=== PATIENT | male | born 1970 | race Caucasian/White ===

== ENCOUNTER 2020-08-09 20:52 | Inpatient (IN) ==
[2020-08-09] MEDS ORDERED: LORazepam 2 MG/4 ML VIAL IV STA ×2 (21:28→23:37)
[2020-08-09 21:38] LABS: Basophils # (auto) 0.04 K/uL (0-0.2); Basophils % (auto) 0.3 %; Eosinophils # (auto) 0.01 K/uL (0-0.5); Eosinophils % (auto) 0.1 %; Hematocrit (blood only) 47.7 % (42-52); Hemoglobin 16.5 g/dL (14.0-18.0); Immature Granulocytes # (auto) 0.03 K/uL (0.00-0.02); Immature Granulocytes % (auto) 0.2 %; Lymphocytes # (auto) 1.74 K/uL (1.2-3.4); Lymphocytes % (auto) 13.2 %; Mean Corpuscular Hemoglobin 30.4 pg (25-34); Mean Corpuscular Hgb Conc 34.6 g/dL (32-36); Mean Platelet Volume 9.7 fL (7.4-10.4); Monocytes % (auto) 8.3 %; Neutrophils % (auto) 77.9 %; Platelet Count 255 K/uL (130-400); RDW Coefficient of Variation 13.1 % (11.5-14.5); Red Blood Count 5.42 M/uL (4.7-6.1); White Blood Count 13.22 K/uL (4.8-10.8)
[2020-08-09 22:16] LABS: Alanine Aminotransferase 55 U/L (12-78); Albumin Level 3.7 gm/dl (3.4-5.0); Aspartate Aminotransferase 31 U/L (15-37); BUN Creatinine Ratio 9.9 (10-20); Blood Urea Nitrogen 9 mg/dl (7-18); Calcium 8.6 mg/dl (8.5-10.1); Carbon Dioxide 23 mmol/L (21-32); Chloride 103 mmol/L (98-107); Creatinine Clr Calc Pharmacy 103.3 ml/min; Est GFR (African American) 110.7; Est GFR (Non-African American) 95.5; Glucose 133 mg/dl (70-99); Lipase 155 U/L (73-393); Sodium 138 mmol/L (136-145)
[2020-08-09] MEDS ORDERED: POTASSIUM CHLORIDE / WTR 10 MEQ/100 ML PLCT IV ONE (22:17)
[2020-08-09] MEDS ORDERED: POTASSIUM CHLORIDE CRTAB 20 MEQ TABCR PO STA (22:17)
[2020-08-09 22:18] LABS: D Dimer 250 ug/L FEU (0-500)
[2020-08-09 22:20] LABS: Albumin Globulin Ratio 0.9 (0.9-2); Alkaline Phosphatase 161 U/L (45-117); Bilirubin,Total 0.9 mg/dl (0.2-1); Total Protein 7.7 gm/dl (6.4-8.2); Troponin I < 0.015 ng/ml (0-0.045)
--- NOTE | 2020-08-09 22:21 | Emergency Department Note ---
Impression & Plan Left-sided chest pain, Tachycardia, Leukocytosis, Hypokalemia, Alcohol abuse, Discharge from urethra in male, Alcohol withdrawal ED Provider Note INFORMANT: Patient, ED PROVIDER(S): Santo Huntley MD CHIEF COMPLAINT: Left-sided chest pain PLAN: Disposition: Admitted Condition: Good Outpatient prescription management: none Referral: None MEDICAL DECISION MAKING: Patient presented because of left-sided chest pain but also noted significant issues with alcohol. He has had problems with trying to decrease or stop on his own. He has had issues with hallucinations in the past. He does not remember falling but did note a bruise to his left chest. He did have tenderness in the chest wall. He was tachycardic. ECG showed a sinus tachycardia without ischemia. Chest x-ray did not reveal any obvious significant findings. The patient had a mild leukocytosis on CBC. His alcohol level was elevated at 174. He was hypokalemic. This was repleted. Troponin LFTs and D-dimer were unremarkable. Given his tachycardia and chest pain a CT was performed to evaluate for any other possibilities. No obvious rib fracture, hemothorax, or pneumothorax seen. No PE. There was an abnormality in the right upper lobe which the patient states he has had before. He is not sure exactly what it is as he did not have a complete follow-up. Patient and did state that TB and cancer were ruled out. The patient was given IV Ativan. On reassessment he was still having persistent tachycardia and his blood pressure was elevated. I discussed possible treatment options outpatient versus inpatient. Given his history and his abnormal vital signs with his contributing that he usually will have withdrawal issues within 6 to 8 hours of his last drink we elected for inpatient evaluation and management. Consultation was made with the [facility] hospitalist service, Dr. Durga Mello. The patient was evaluated in the ER for further management. Incidentally the patient also was noting some urethral discharge and asked to be tested by a swab. This was performed and GC chlamydia testing is currently pending. A second dose of IV Ativan was also given. Triage Nursing notes reviewed and agree them. Additional history obtained from patient's Vital Signs: reviewed and remarkable for hypertension and tachycardia Differential diagnosis: Rib fracture, cardiac ischemia, aortic dissection, pulmonary embolism, pneumothorax, pneumonia, pericarditis, myocarditis, esophageal rupture, GERD, cholecystitis, pancreatitis, musculoskeletal,, STD, UTI, alcohol abuse, alcohol withdrawal as well as other pathologies. Diagnostics interpreted by me: ECG: Twelve-lead ECG reveals a sinus tachycardia at 108 bpm. Incomplete right bundle branch block. There is inferior Q waves present. Poor R wave progression anteriorly. No ST elevation. No PVCs or PACs. Normal QRS and axis. Cardiac Monitoring: Cardiac monitoring ordered by me: The patient was placed on continuous cardiac monitoring and observed. It revealed a normal sinus rhythm at 98 beats per minute without ectopy or evidence of dysrhythmia. Imaging studies: Chest x-ray. Findings: A chest x-ray was performed and revealed no pneumothorax, effusion, infiltrate, pulmonary edema, free air under the bi phragm, or wide mediastinum. Impression: No acute disease. CT PE study is negative for acute thromboembolic disease, pneumothorax, rib fracture. Abnormality noted in the right upper lobe. Unknown etiology. I refer you to the EMR for further details. HPI: The patient is a 49 year old male who presents to the Emergency Room with complaints of left-sided chest pain. This started today and is persisting. The left chest is tender to palpation. He does note a bruise in the left axilla. He is not sure if he fell as he notes drinking a significant on alcohol on a daily basis. The patient also notes the following associated symptoms, urethral discharge and wants tested for STD. The patient has taken no medication for relieving factors. Current pain is rated as 6/10. Patient states that he has had issues with withdrawal before. The patient notes he will typically have withdrawal symptoms within about 8 hours of stopping his last drink. The patient states his last drink was about 2 hours ago. Pt denies LOC, head trauma, headache, fevers, chills, diaphoresis, visual changes, neck pain, breathing difficulties, nausea, vomiting, abdominal pain, back pain, melena, hematochezia, urinary symptoms, numbness, weakness, lymphadenopathy, rash, or other complaints. ROS: See above HPI for pertinent positives & negatives. A total of 10 systems reviewed and were otherwise negative. PAST MEDICAL HISTORY:See Below , alcohol abuse PAST SURGICAL HISTORY:See Below, FAMILY HISTORY:See Below SOCIAL HISTORY:See Below, drinks daily. . HOME MEDICATIONS:See Below ALLERGIES:See Below VITALS:See Below PHYSICAL EXAMINATION: GENERAL: Awake, alert, well-appearing, in no distress HENT: Normocephalic, atraumatic. Oropharynx unremarkable. EYES: Normal conjunctiva. Sclera non-icteric. NECK: Inspection normal. Non-tender. Supple. No nuchal rigidity. FROM. No ma sses. RESPIRATORY: Clear to auscultation. No wheezes. No rales. Normal respiratory effort. CARDIAC: Tachycardic rate. Normal rhythm. No murmurs. No rubs. Extremities warm and well perfused. Pulses equal. No JVD. GI: Soft, non-distended. No tenderness to palpation. No rebound or guarding. No masses. : Normal male. No vesicles or ulcerations noted. No tenderness or swelling. MUSCULOSKELETAL: Atraumatic. Chest examination reveals no tenderness. The back is symmetrical on inspection without obvious abnormality. There is no CVA tenderness to palpation. No joint edema. LOWER EXTREMITIES: Calves are equal size bilaterally and non-tender. No edema. No discoloration. NEURO: Normal sensorium. No sensory or motor deficits noted. SKIN: No rash or jaundice noted. Santo Huntley MD Past Med/Surg History Social History Smoking Status: Current every day smoker Tobacco Type: Smokeless Tobacco (Dip or Chew) Feels Safe at Home: Yes Allergies Allergies Allergy/AdvReac Type Severity Reaction Status Date / Time No Known Allergies Allergy Verified 08/09/20 21:34 Home Meds Home Medications Medication Instructions Recorded Confirmed cholecalciferol (vitamin D3) 25 mcg PO DAILY 08/09/20 08/09/20 [Vitamin D3] gabapentin 800 mg PO TID 08/09/20 08/09/20 melatonin 15 mg PO HS 08/09/20 08/09/20 trazodone 150 mg PO HS 08/09/20 08/09/20 zinc sulfate 220 mg PO DAILY 08/09/20 08/09/20 Results & Data (ED) Vital Signs Vital Signs - 24 hr 08/09/20 20:54 08/09/20 21:18 08/09/20 21:30 Temperature 37.4 C Temperature Source Temporal Artery Scan Pulse Rate 120 H 114 H Pulse Rate [Apical] 126 H Pulse Rate from SpO2 Sensor 116 H Pulse Rhythm Regular Respiratory Rate 16 27 H Respiratory Effort / Characteristics Non-Labored Spontaneous Respiratory Depth Normal Blood Pressure 140/103 H 138/101 H Blood Pressure [Left Arm] 144/103 H Blood Pressure Mean 115 113 Blood Pressure Mean [Left Arm] 116 Blood Pressure Position [Left Arm] Pulse Oximetry 95 94 94 Oxygen Delivery Method Room Air Room Air Room Air Sepsis Recent Fever Within 48 Hours No Sepsis New/Unexplained Change in Mental Status No Sepsis Action Taken by Nursing No Action Required 08/09/20 22:00 08/09/20 22:30 08/09/20 23:00 Temperature Temperature Source Pulse Rate 110 H 111 H Pulse Rate [Apical] 101 H Pulse Rate from SpO2 Sensor 111 H 112 H Pulse Rhythm Respiratory Rate 16 Respiratory Effort / Characteristics Respiratory Depth Normal Blood Pressure 104/84 122/92 Blood Pressure [Left Arm] 146/88 H Blood Pressure Mean 90 102 Blood Pressure Mean [Left Arm] 107 Blood Pressure Position [Left Arm] Lying Pulse Oximetry 93 92 98 Oxygen Delivery Method Room Air Room Air Sepsis Recent Fever Within 48 Hours Sepsis New/Unexplained Change in Mental Status Sepsis Action Taken by Nursing Laboratory Data Result diagrams: 08/09/20 21:20 08/09/20 21:20 Lab Results 08/09/20 08/09/20 08/09/20 Range/Units 21:20 21:20 21:20 WBC 13.22 H (4.8-10.8) K/uL RBC 5.42 (4.7-6.1) M/uL Hgb 16.5 (14.0-18.0) g/dL Hct 47.7 (42-52) % MCV 88.0 (80-100) fL MCH 30.4 (25-34) pg MCHC 34.6 (32-36) g/dL RDW Std Deviation 42.0 (36.4-46.3) fL RDW Coeff of Lala 13.1 (11.5-14.5) % Plt Count 255 (130-400) K/uL MPV 9.7 (7.4-10.4) fL Immature Gran % (Auto) 0.2 % Neut % (Auto) 77.9 % Lymph % (Auto) 13.2 % Sanders % (Auto) 8.3 % Eos % (Auto) 0.1 % Baso % (Auto) 0.3 % Neut # (Auto) 10.30 H (1.4-6.5) K/uL Lymph # (Auto) 1.74 (1.2-3.4) K/uL Sanders # (Auto) 1.10 H (0.11-0.59) K/uL Eos # (Auto) 0.01 (0-0.5) K/uL Baso # (Auto) 0.04 (0-0.2) K/uL Immature Gran # (Auto) 0.03 H (0.00-0.02) K/uL D-Dimer 250 (0-500) ug/L FEU Sodium 138 (136-145) mmol/L Potassium 3.0 L (3.5-5.1) mmol/L Chloride 103 (98-107) mmol/L Carbon Dioxide 23 (21-32) mmol/L Anion Gap 13.0 H (3-11) BUN 9 (7-18) mg/dl Creatinine 0.94 (0.6-1.4) mg/dl Est Cr Clr Drug Dosing 103.3 ml/min Est GFR ( Amer) 110.7 Est GFR (Non-Af Amer) 95.5 BUN/Creatinine Ratio 9.9 L (10-20) Glucose 133 H (70-99) mg/dl Calcium 8.6 (8.5-10.1) mg/dl Total Bilirubin 0.9 (0.2-1) mg/dl AST 31 (15-37) U/L ALT 55 (12-78) U/L Alkaline Phosphatase 161 H (45-117) U/L Troponin I < 0.015 (0-0.045) ng/ml Total Protein 7.7 (6.4-8.2) gm/dl Albumin 3.7 (3.4-5.0) gm/dl Globulin 4.0 (2.5-4.0) gm/dl Albumin/Globulin Ratio 0.9 (0.9-2) Lipase 155 (73-393) U/L Ethyl Alcohol mg/dL (0-3) mg/dl 08/09/20 Range/Units 21:35 WBC (4.8-10.8) K/uL RBC (4.7-6.1) M/uL Hgb (14.0-18.0) g/dL Hct (42-52) % MCV (80-100) fL MCH (25-34) pg MCHC (32-36) g/dL RDW Std Deviation (36.4-46.3) fL RDW Coeff of Lala (11.5-14.5) % Plt Count (130-400) K/uL MPV (7.4-10.4) fL Immature Gran % (Auto) % Neut % (Auto) % Lymph % (Auto) % Sanders % (Auto) % Eos % (Auto) % Baso % (Auto) % Neut # (Auto) (1.4-6.5) K/uL Lymph # (Auto) (1.2-3.4) K/uL Sanders # (Auto) (0.11-0.59) K/uL Eos # (Auto) (0-0.5) K/uL Baso # (Auto) (0-0.2) K/uL Immature Gran # (Auto) (0.00-0.02) K/uL D-Dimer (0-500) ug/L FEU Sodium (136-145) mmol/L Potassium (3.5-5.1) mmol/L Chloride (98-107) mmol/L Carbon Dioxide (21-32) mmol/L Anion Gap (3-11) BUN (7-18) mg/dl Creatinine (0.6-1.4) mg/dl Est Cr Clr Drug Dosing ml/min Est GFR ( Amer) Est GFR (Non-Af Amer) BUN/Creatinine Ratio (10-20) Glucose (70-99) mg/dl Calcium (8.5-10.1) mg/dl Total Bilirubin (0.2-1) mg/dl AST (15-37) U/L ALT (12-78) U/L Alkaline Phosphatase (45-117) U/L Troponin I (0-0.045) ng/ml Total Protein (6.4-8.2) gm/dl Albumin (3.4-5.0) gm/dl Globulin (2.5-4.0) gm/dl Albumin/Globulin Ratio (0.9-2) Lipase (73-393) U/L Ethyl Alcohol mg/dL 174.4 H (0-3) mg/dl Administered Medications Discontinued Medications Lorazepam (Ativan) 2 mg in 4 mls @ 4 mls/min IV NOW STA Stop: 08/09/20 21:29 Last Admin: 08/09/20 21:34 Dose: 4 mls/min Documented by: [id number] Potassium Chloride (K Colt / Wtr) 10 meq in 100 mls @ 100 mls/hr IV ONE ONE Stop: 08/09/20 23:16 Last Infusion: 08/10/20 00:07 Dose: 0 mls/hr Documented by: [id number] Admin: 08/09/20 22:25 Dose: 100 mls/hr Documented by: [id number] Lorazepam (Ativan) 2 mg in 4 mls @ 4 mls/min IV NOW STA Stop: 08/09/20 23:38 Last Admin: 08/10/20 00:07 Dose: 4 mls/min Documented by: [id number] Ioversol (Optiray 320 125ml) 115 ml IV ONCE ONE Stop: 08/09/20 22:51 Last Admin: 08/09/20 22:50 Dose: 115 ml Documented by: [id number] Potassium Chloride (Potassium Chloride Crtab 20 Meq Tabcr) 20 meq PO NOW STA Stop: 08/09/20 22:18 Last Admin: 08/09/20 22:25 Dose: 20 meq Documented by: [id number] Discharge Plan Visit Data Chief Complaint: Chest Pain Stated Complaint: CHEST PAIN ED Provider: Santo Huntley Discharge Problem: Left-sided chest pain, Tachycardia, Leukocytosis, Hypokalemia, Alcohol abuse, Discharge from urethra in male, Alcohol withdrawal Forms Stand Alone Forms: My [facility] Prescriptions Prescriptions: No Action trazodone 50 mg Tablet 150 mg PO HS RF: 0 gabapentin 800 mg Tablet 800 mg PO TID RF: 0 cholecalciferol (vitamin D3) [Vitamin D3] 25 mcg (1,000 unit) Capsule 25 mcg PO DAILY RF: 0 zinc sulfate 220 (50) mg Capsule 220 mg PO DAILY RF: 0 melatonin 5 mg Tablet 15 mg PO HS RF: 0
[2020-08-09] MEDS ORDERED: OPTIRAY 320 125ml IV ONE (22:50)
--- NOTE | 2020-08-10 01:32 | History & Physical Report ---
Date of Service August 10, 2020 Assessment & Plan (1) Alcohol withdrawal: Mr. Pardo is a 49 yo M with a PMHx of alcohol use disorder and bipolar disorder who was admitted for alcohol withdrawal management and rehabilitation placement. - Etoh level 174 on admission - placed on AWSS protocol with oral Ativan (1 IV dose on board in the event of agitation) - patient is on gabapentin 800 TID at home (allegedly for bipolar disorder?)- increased to 800mg QID during admission given his history of withdrawal seizures - agreeable to inpatient Etoh rehab upon discharge - high dose folate, thiamine and daily MV ordered - will check folate and B12 levels in am - maintenance IVF with LR at 115mls/hr - zofran prn for nausea (2) Bipolar disorder: - description of manic episodes suggests type I - patient is not currently on a mood stabilizer - no apparent delusions or hallucinations on exam - psychiatry consult placed on admission for assistance with medication management in the setting of Etoh withdrawal (3) Tachycardia: - Chest CTA on admission showing no acute PE - likely secondary to Etoh withdrawal > sepsis (elevated WBC count, tachycardia) - withdrawal management as above (4) Leukocytosis: - WBC elevated to 13 - UA ordered. CXR and Chest CTA without evidence of consolidation concerning for PNA. GC/Chlamydia testing pending. - repeat CBC in am (5) Hypokalemia: - level 3.0 on admission - 30meQ replacement given in ED - LR at 11mls/hr as above - Mag level ordered - repeat BMP in am (6) Discharge from urethra in male: - gonorrhea and chlamydia testing ordered in ED - HIV testing added on admission - consider empiric antibiotics vs. awaiting GC/Ch results (7) Epigastric pain: - present on exam - suspect GERD/PUD - regular, heavy Etoh consumption is risk factor for the above - will start patient on protonix 20mg daily (8) Pulmonary nodule: - nodular opacity noted in Right upper lung field on chest CTA (STATrad); await official read - per patient - this is a known nodule, discovered ~ 2 years ago. 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 tele Diet: Regular Dvt ppx: Lovenox Code: Full, I discussed with patient History of Present Illness Primary Care Provider: NO PCP Mr. Pardo is a 49 yo gentleman with a PMHx of alcohol use disorder and bipolar disorder. He presents today for management of alcohol withdrawal symptoms. He has a history of many previous withdrawal episodes - several of which were associated with seizures. He says he typically drinks ~10 shots of hard liquor daily - no beer or wine. 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 He has been to inpatient rehab for alcoholism several times in the past - most recently in June 2020 at [facility] in [place], [place]. He did not have a good experience there. He describes significant overlap between his drinking problems and his mental health condition - he says that when he completed his treatment at [facility], he was discharged to a homeless fpc in the [place] area, rather than back at home with his . Apparently he was sleeping on the streets for several days and his was able to track him down. It is unclear why he was discharged to a homeless fpc rather than to home - but Mr. Pardo admits that his bipolar was "in effect" at the time. His was present in the room during the exam - she supplied most of the history. She characterizes this occurrence (being homeless in the [place] for several days) as a "fugue," or "dissociative episode" whereas Mr. Pardo describes it as "donavon." He does work with a psychiatric who is based out of the [place] area. This provider is apparently still caring for him remotely via telehealth. When asked what he takes for his bipolar disorder, Mr. Pardo replied, "Gabapentin." He did say that his psychiatrist wanted to start him on Latuda - but he has not actually started this medication yet due to affordability issues. They are working to find a cheaper alternative. Mr. Pardo was apparently seen in the [facility] ED on 07/06/20 - this visit seemingly took place immediately after his located him on the streets of [place]. Apparently Mrs. Pardo become quite irate - she was frustrated with the fact that physicians were allowing Mr. Pardo to make his own medical decisions (she felt as though he was mentally incompetent). [facility] social work, crisis work, and the police were involved with his ED visit - ultimately Mr. Pardo refused further care and drove home to [place] with his . Of note, he mentioned concern of penile discharge and dysuria. After his left - he said there were concerns "from both ends," about "relationship lies." He requested STD testing. He is motivated to quit drinking and is agreeable to inpatient rehab placement following this hospitalization. He would prefer not to go back to [facility] in [place]. On arrival to the ED, he was afebrile, tachycardic to 101, BP 146/88, RR 16, 98 on room air. His WBC was mildly elevated to 12. Hgb normal, MCV 88. D-dimer not elevated. K low at 3.0; electrolytes otherwise stable. Creatinine normal. AST and ALT normal. Alk phos elevated to 161. Trop < 0.015. Lipase not elevated. Eoth 174. Gonorrhea and chylamdia pending. CXR showing no acute process. Chest CTA showing no evidence of acute PE; RUL nodular opacity. Patient was given 2mg of IV Ativan x 2. His potassium was replaced with 20meq oral Kcl and 10meq IV. Allergies Allergy/AdvReac Type Severity Reaction Status Date / Time No Known Allergies Allergy Verified 08/09/20 21:34 Home Medications Medication Instructions Recorded Confirmed Type cholecalciferol (vitamin D3) 25 mcg PO DAILY 08/09/20 08/09/20 History [Vitamin D3] gabapentin 800 mg PO TID 08/09/20 08/09/20 History melatonin 15 mg PO HS 08/09/20 08/09/20 History trazodone 150 mg PO HS 08/09/20 08/09/20 History zinc sulfate 220 mg PO DAILY 08/09/20 08/09/20 History Past Med/Surg History Social History Smoking Status: Never smoker Tobacco Type: Smokeless Tobacco (Dip or Chew) Do You Dip or Chew Tobacco: Yes (1 can/day); Hx Alcohol Use: Yes Alcohol type: hard liquor Preferred Language: Uzbek Communication Ability: Effective 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 marital status: Current Living Situation: Spouse Feels Safe at Home: Yes Assistive Devices: Glasses Review of Systems Gastrointestinal: + abdominal pain Genitourinary: + dysuria and + penile discharge Physical Exam Constitutional: WD/WN, vitals as above cooperative; no acute distress Eyes: + anicteric sclerae ENMT: external ear and nose normal, oropharynx normal Neck: normal visual inspection and trachea midline Respiratory: normal respiratory effort, lungs clear to auscultation Auscultation: + wheezes (on expiration ); no crackles and no rales Cardiovascular: Rate/Rhythm: regular rhythm and + tachycardic Heart Sounds: normal S1 and normal S2 Extremities: no pedal edema Gastrointestinal (Abdomen): Inspection/Auscultation: abdomen normal to inspection and normal bowel sounds Percussion/Palpation: + abdomen tender (epigastric area) and abdomen soft; no guarding, abdomen not rigid and no hepatosplenomegaly Skin: no rashes, warm and dry Neurologic: moves all extremities Psychiatric: A+Ox3, euthymic affect Results & Data Results & Data ([facility]) Vital Signs (Past 12 Hours) Vital Signs Temp Pulse Pulse Resp BP BP Pulse Ox 08/10/20 01:00 101 H 16 160/104 H 96 08/09/20 23:00 101 H 16 146/88 H 98 08/09/20 22:30 111 H 122/92 92 08/09/20 22:00 110 H 104/84 93 08/09/20 21:30 114 H 138/101 H 94 08/09/20 21:18 126 H 27 H 144/103 H 94 08/09/20 20:54 37.4 C 120 H 16 140/103 H 95 Supervising Physician Co-Signing Physician Notes Attending addendum: I have physically seen this patient, have supervised the medical residents activities, and agree with the H&P unless as otherwise noted. Assessment and Plan: Alcohol withdrawal- Place on AWSS protocol. Already on gabapentin 800 mg 3 times daily, and will increase to 4 times daily. Folate 1 mg p.o. daily Thiamine 1 mg p.o. daily Nephrocaps 1 p.o. daily NSS + KCl 20 mEq 150 mils per hour Zofran 4 mg IV every 6 hours as needed Famotidine 20 mg IV every 12 hours Bipolar disorder/self-described manic episodes- Consult psychiatry Remaining orders and notations as noted Resident Activity Tracking Resident Involvement: Resident Care Provided Care Provided: Adult Hospital Medicine
[2020-08-10] MEDS ORDERED: ONDANSETRON INJ 2 MG/ML 2 ML VIAL IV PRN (04:09)
[2020-08-10] MEDS ORDERED: LORazepam 1 MG/2 ML VIAL IV PRN (04:09)
[2020-08-10] MEDS ORDERED: POLYETHYLENE (MIRALAX) 17 GM PACK PO PRN (04:09)
[2020-08-10] MEDS: LACTATED RINGER'S 1,000 ML IV SCH ×3 (05:09→21:03)
[2020-08-10 06:18] LABS: Appearance Urine Clear (Clear); Bacteria Urine Automated Negative (Negative); Bilirubin Urine Negative (Negative); Blood Urine Trace (Negative); Cast Urine Automated 0 /lpf (0-5); Color Urine Yellow; Glucose Urine UA Negative (Negative); Ketones Urine 1+ (Negative); Leukocyte Esterase Urine Negative (Negative); Nitrite Urine Negative (Negative); Protein Urine Negative (Negative); RBC Urine Automated 0-4 /hpf (0-4); Specific Gravity Urine > 1.045 (1.000-1.030); Urobilinogen Urine Negative (Negative); pH Urine 6.5 (4.5-7.5)
[2020-08-10 07:36] LABS: Basophils # (auto) 0.04 K/uL (0-0.2); Basophils % (auto) 0.5 %; Eosinophils # (auto) 0.09 K/uL (0-0.5); Eosinophils % (auto) 1.1 %; Hematocrit (blood only) 42.2 % (42-52); Hemoglobin 14.3 g/dL (14.0-18.0); Immature Granulocytes # (auto) 0.01 K/uL (0.00-0.02); Immature Granulocytes % (auto) 0.1 %; Lymphocytes # (auto) 2.09 K/uL (1.2-3.4); Lymphocytes % (auto) 25.6 %; Mean Corpuscular Hgb Conc 33.9 g/dL (32-36); Mean Corpuscular Volume 88.7 fL (80-100); Mean Platelet Volume 9.6 fL (7.4-10.4); Monocytes # (auto) 0.85 K/uL (0.11-0.59); Monocytes % (auto) 10.4 %; Neutrophils # (auto) 5.07 K/uL (1.4-6.5); Neutrophils % (auto) 62.3 %; Platelet Count 207 K/uL (130-400); RDW Coefficient of Variation 13.4 % (11.5-14.5); RDW Standard Deviation 43.2 fL (36.4-46.3); Red Blood Count 4.76 M/uL (4.7-6.1); White Blood Count 8.15 K/uL (4.8-10.8)
--- NOTE | 2020-08-10 07:50 | XRay Report ---
XR chest 1V portable HISTORY: Atypical Chest Pain COMPARISON: None. FINDINGS: No pleural effusions. No pneumothorax. The heart is normal in size. Small linear density le ft midlung zone favor scarring or atelectasis. Small tubular densities within the right upper lobe fa vor opacified bronchi. IMPRESSION: Small tubular density within the right upper lobe favor opacified bronchi. This is better appreciated on the same day chest CTA. ACT 112: Negative or not required by law. Electronically signed by: Hany Holm M.D. 08/10/2020 7:49 AM
[2020-08-10 08:26] LABS: BUN Creatinine Ratio 10.5 (10-20); Calcium 8.6 mg/dl (8.5-10.1); Creatinine Clr Calc Pharmacy 112.1 ml/min; Est GFR (African American) 118.8; Est GFR (Non-African American) 102.5; Potassium 3.6 mmol/L (3.5-5.1)
[2020-08-10] MEDS: GABAPENTIN 800 MG TAB PO SCH ×4 (08:28→21:05)
[2020-08-10] MEDS: PANTOprazole 40 MG TAB PO SCH (08:28)
[2020-08-10] MEDS: ENOXAPARIN INJ 40 MG/0.4 ML SYR SQ SCH (08:28)
[2020-08-10] MEDS: MULTIVITAMIN TAB PO SCH (08:28)
[2020-08-10] MEDS: FOLIC ACID 1 MG TAB PO SCH (08:29)
[2020-08-10] MEDS: THIAMINE HCL 100 MG TAB PO SCH (08:29)
[2020-08-10] MEDS: LORazepam 1 MG TAB PO PRN ×3 (08:32→21:14)
--- NOTE | 2020-08-10 08:44 | CT Scan Report ---
CT ANGIOGRAPHY OF THE CHEST, PULMONARY EMBOLUS PROTOCOL CLINICAL HISTORY: PE, left chest pain COMPARISON STUDY: Chest radiograph performed earlier today. TECHNIQUE: Following IV administration of 115 mL of Optiray-320, helical axial images of the chest we re obtained utilizing the pulmonary embolus protocol. Maximal intensity projections and sagittal and coronal reformats were viewed on an independent 3D workstation. IV contrast was administered withou t complication. Automated exposure control was utilized for the study. A dose lowering technique wa s utilized adhering to the principles of ALARA. CT DOSE: 611.58 mGy.cm FINDINGS: No pulmonary emboli are identified. The size of the heart is normal. There is no thoracic aortic dissection. No pericardial effusion. No pneumothorax or pleural effusion is noted. There is no consolidation to suggest pneumonia. There is no thoracic lymphadenopathy. Note is made of a hypodens e tubular density within the right upper lobe that measures 1.9 cm. There is associated bronchiectasi s within the right upper lobe and relative lucency within the right upper lobe. The thorax is unremar kable. Upper abdomen is unremarkable. IMPRESSION: 1. No pulmonary emboli identified. 2. No acute process within the chest. 3. 1.9 cm tubular hypodensity within the right upper lobe with associated bronchiectasis and relative lucency/emphysematous change. 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 Other etiologies such as allergic bronch opulmonary aspergillosis or endobronchial lesion such as carcinoid are considered less likely. Noneme rgent Pulmonary consultation is recommended. A follow-up chest CT in 6 months is also suggested. ACT 112: Positive. There are findings on this exam that require communication between the performing entity and the patient following Patient Test Result Information Act ([place] Act 112) guidelines. Electronically signed by: Bharath Devi M.D. 08/10/2020 8:43 AM
[2020-08-10 09:17] LABS: Folate (Folic Acid) 5.9 ng/ml (>5.38)
--- NOTE | 2020-08-10 10:15 | Electrocardiogram Report ---
Test Reason : Blood Pressure : / mmHG Vent. Rate : 108 BPM Atrial Rate : 108 BPM P-R Int : 126 ms QRS Dur : 096 ms QT Int : 322 ms P-R-T Axes : 037 014 063 degrees QTc Int : 431 ms Sinus tachycardia Incomplete right bundle branch block possible Inferior infarct , age undetermined Abnormal ECG No previous ECGs available Confirmed by Marquis Latham ([id number]) on 08/10/2020 10:15:20 AM Referred By: REFERRED SELF Confirmed By:David Latham
--- NOTE | 2020-08-10 13:20 | Hospitalist Progress Note ---
Date of Service August 10, 2020 Assessment & Plan (1) Alcohol withdrawal: Mr. Pardo is a 49 yo M with a PMHx of alcohol use disorder and bipolar disorder who was admitted for alcohol withdrawal management and rehabilitation placement. Alcohol Withdrawal - Etoh level 174 on admission - placed on AWSS protocol with oral Ativan (1 IV dose on board in the event of agitation) - gabapentin 800 TID at home increased to 800mg QID during admission given his hx of withdrawal seizures - agreeable to inpatient Etoh rehab upon discharge - high dose folate, thiamine and daily MV ordered - encourage PO fluid - zofran prn for nausea Bipolar Disorder - description of manic episodes suggests type I - patient is not on a mood stabilizer; no delusions or hallucinations - psych consult - questionable Bipolar diagnosis. not financially able to be on lurasidone. Penile Discharge - UA unremarkable for infection, no cx ordered - elevated WBC at 13 - GC Chlamydia, HIV testing pending Epigastric Pain - likely GERD/PUD 2/2 EToh abuse - protonix BID PUlmonary nodule - 1.9 cm nodular opacity noted on CXR, CTA Chest; advised follow up CT in a few months - does not follow with pulmonology, has not been biopsied DVT ppx: lovenox FEN/GI: LR, protonix, Code Status: Full Code Dispo; alcohol rehab (2) Bipolar disorder: (3) Tachycardia: (4) Leukocytosis: (5) Hypokalemia: (6) Discharge from urethra in male: (7) Epigastric pain: (8) Pulmonary nodule: Admission and Anticipated Discharge Date Admission Date: August 10, 2020 Supervising Physician Co-Signing Physician Notes Attending attestation Pt seen and examined in concert with Dr. Back. In agreement with the documented findings as noted in the resident documentation with any exceptions or additions as noted here. Resting in bed with mild agitation/diaphoresis but really feeling well overall. Ongoing left lower rib/flank pain with unknown, potentially traumatic. On examination, S1/S2 nl RRR no MCG. CTAB. Abd NT/ND BS+ve. TTP over floating ribs on the left which reproduces complaint without apparent ecchymosis or deformity. EtOH withdrawal - continue AWSS protocol, gabapentin. Folate/thiamine/MV Left rib pain - likely MSK based on examination, topical voltaren gel, consider oxycodone if needed Penile discharge - f/u GC/CT/HIV Else see resident documentation as noted. Subjective complaining of left sided rib pain this morning. says it hurts more when taking a deep Deep breaths or twisting to his side.He denies any nausea or stomach pain this morning. He does not have any other chest pain or trouble breathing. He does not remember falling down the stairs or at home however he says he very well could have given how drunk he was at home. He states that they went out to dinner and he did his "standard 10 shots" after which she does not remember much except that he started feeling some stomach pain and was brought to the emergency department. Review of Systems Review of Systems: Institutional: Denies fevers, chills, night sweats Cardiac: Denies chest pain, palpitations Pulmonary denies shortness of breath, pain with deep breath GI: No nausea,+ abdominal pain and left upper quadrant,+ melanotic stool, no bloody stools Neuro/psych: No numbness or tingling, no hallucinations Physical Exam Physical Exam: Constitutional: Middle-aged man sitting up in bed in no acute distress : Cardiac: Regular rate and rhythm no murmurs rubs or gallops appreciated Pulmonary: Lungs clear to auscultation bilaterally, no wheezes rhonchi or rales GI: Tender to palpation along left lower intercostal muscles and ribs. No point tenderness with greatest pain elicitable. Mild epigastric pain to palpation. No rebound or guarding. Nondistended, hypoactive bowel sounds Results & Data Results & Data ([facility]) Vital Signs (Past 12 Hours) Vital Signs Temp Pulse Pulse Pulse Resp BP BP 08/10/20 11:22 36.8 C 88 18 147/97 H 08/10/20 07:19 36.7 C 90 18 152/106 H 150/102 H 08/10/20 07:00 90 08/10/20 04:56 90 08/10/20 04:35 36.3 C L 08/10/20 03:50 36.5 C 84 16 159/106 H 08/10/20 01:58 98 H 16 135/107 H Pulse Ox 08/10/20 11:22 96 08/10/20 07:19 96 08/10/20 07:00 08/10/20 04:56 08/10/20 04:35 08/10/20 03:50 95 08/10/20 01:58 99 Laboratory Results WBC 8.15 K/uL (4.8-10.8) 08/10/20 07:08 RBC 4.76 M/uL (4.7-6.1) 08/10/20 07:08 Hgb 14.3 g/dL (14.0-18.0) 08/10/20 07:08 Hct 42.2 % (42-52) 08/10/20 07:08 MCV 88.7 fL (80-100) 08/10/20 07:08 MCH 30.0 pg (25-34) 08/10/20 07:08 MCHC 33.9 g/dL (32-36) 08/10/20 07:08 RDW Std Deviation 43.2 fL (36.4-46.3) 08/10/20 07:08 RDW Coeff of Lala 13.4 % (11.5-14.5) 08/10/20 07:08 Plt Count 207 K/uL (130-400) 08/10/20 07:08 MPV 9.6 fL (7.4-10.4) 08/10/20 07:08 Immature Gran % (Auto) 0.1 % 08/10/20 07:08 Neut % (Auto) 62.3 % 08/10/20 07:08 Lymph % (Auto) 25.6 % 08/10/20 07:08 [place] % (Auto) 10.4 % 08/10/20 07:08 Eos % (Auto) 1.1 % 08/10/20 07:08 Baso % (Auto) 0.5 % 08/10/20 07:08 Neut # (Auto) 5.07 K/uL (1.4-6.5) 08/10/20 07:08 Lymph # (Auto) 2.09 K/uL (1.2-3.4) 08/10/20 07:08 [place]y # (Auto) 0.85 K/uL (0.11-0.59) H 08/10/20 07:08 Eos # (Auto) 0.09 K/uL (0-0.5) 08/10/20 07:08 Baso # (Auto) 0.04 K/uL (0-0.2) 08/10/20 07:08 Immature Gran # (Auto) 0.01 K/uL (0.00-0.02) 08/10/20 07:08 D-Dimer 250 ug/L FEU (0-500) 08/09/20 21:20 Sodium 139 mmol/L (136-145) 08/10/20 07:08 Potassium 3.6 mmol/L (3.5-5.1) D 08/10/20 07:08 Chloride 106 mmol/L (98-107) 08/10/20 07:08 Carbon Dioxide 26 mmol/L (21-32) 08/10/20 07:08 Anion Gap 7.0 (3-11) 08/10/20 07:08 BUN 9 mg/dl (7-18) 08/10/20 07:08 Creatinine 0.86 mg/dl (0.6-1.4) 08/10/20 07:08 Est Cr Clr Drug Dosing 112.1 ml/min 08/10/20 07:08 Est GFR ( Amer) 118.8 08/10/20 07:08 Est GFR (Non-Af Amer) 102.5 08/10/20 07:08 BUN/Creatinine Ratio 10.5 (10-20) 08/10/20 07:08 Glucose 101 mg/dl (70-99) H 08/10/20 07:08 Calcium 8.6 mg/dl (8.5-10.1) 08/10/20 07:08 Magnesium 2.0 mg/dl (1.8-2.4) 08/10/20 07:08 Total Bilirubin 0.9 mg/dl (0.2-1) 08/09/20 21:20 AST 31 U/L (15-37) 08/09/20 21:20 ALT 55 U/L (12-78) 08/09/20 21:20 Alkaline Phosphatase 161 U/L (45-117) H 08/09/20 21:20 Troponin I < 0.015 ng/ml (0-0.045) 08/09/20 21:20 Total Protein 7.7 gm/dl (6.4-8.2) 08/09/20 21:20 Albumin 3.7 gm/dl (3.4-5.0) 08/09/20 21:20 Globulin 4.0 gm/dl (2.5-4.0) 08/09/20 21:20 Albumin/Globulin Ratio 0.9 (0.9-2) 08/09/20 21:20 Lipase 155 U/L (73-393) 08/09/20 21:20 Vitamin B12 414 pg/ml (193-986) 08/10/20 07:08 Folate 5.90 ng/ml (>5.38) 08/10/20 07:08 Urine Color Yellow 08/10/20 05:02 Urine Appearance Clear (Clear) 08/10/20 05:02 Urine pH 6.5 (4.5-7.5) 08/10/20 05:02 Ur Specific [place] > 1.045 (1.000-1.030) H 08/10/20 05:02 Urine Protein Negative (Negative) 08/10/20 05:02 Urine Glucose (UA) Negative (Negative) 08/10/20 05:02 Urine Ketones 1+ (Negative) H 08/10/20 05:02 Urine Blood Trace (Negative) H 08/10/20 05:02 Urine Nitrite Negative (Negative) 08/10/20 05:02 Urine Bilirubin Negative (Negative) 08/10/20 05:02 Urine Urobilinogen Negative (Negative) 08/10/20 05:02 Ur Leukocyte Esterase Negative (Negative) 08/10/20 05:02 Urine WBC (Auto) 1-5 /hpf (0-5) 08/10/20 05:02 Urine RBC (Auto) 0-4 /hpf (0-4) 08/10/20 05:02 U Hyaline Cast (Auto) 0 /lpf (0-5) 08/10/20 05:02 U Epithel Cells (Auto) 10-20 /lpf (0-5) H 08/10/20 05:02 Urine Bacteria (Auto) Negative (Negative) 08/10/20 05:02 Ethyl Alcohol mg/dL 174.4 mg/dl (0-3) H 08/09/20 21:35 Resident Activity Tracking Resident Involvement: Resident Care Provided Care Provided: Adult Hospital Medicine
--- NOTE | 2020-08-10 14:27 | Psychiatric Consultation ---
Date of Consultation August 10, 2020 Impression / Recommendations Impression Dr. Anabel Alvarado was directly involved in review and discussion of the patient's case and participated in medical decision making regarding treatment recommendations. RECOMMENDATIONS: 08/10 - Psychiatric consultation requested by our hospitalist team to evaluated patient for reported history of bipolar disorder, with continued alcohol abuse. Pt is being treated medically of potential alcohol withdrawal. AWSS protocol. BAL on admission was 174.4. - True history of bipolar diagnosis has not yet been confirmed. Pt states this information comes primarily from his 's perception of his mood. He states the conversation of this possible diagnosis began about 7 years ago, which was also during a time when he had significant alcohol abuse. Given continued alcohol abuse, we are unable at this time to evaluate for any primary psychiatric condition - this is best done after patient has demonstrated commitment to abstaining from alcohol use for several months and his organic mood symptoms can be observed. Patient certainly does not appear manic or depressed and denies hallucinations or paranoia/delusions. We can attempt to gather collateral information from and his previous D&A rehab stay. - No recommended medication adjustments at this time. Will attempt to gather collateral information from a psychiatrist the patient states he has seen virtually. Apparently there has been conversation about starting lurasidone; however, this was not a financially feasible option. Admittedly there is quite a bit of information that is missing related to recent events in the patient's mental health/substance abuse treatment. - Case management has been consulted - primary recommendation is for inpatient D&A rehabilitation. Could consider dual diagnosis facility though efforts should not be limited to this as primary suggestion is that patient address his alcohol abuse, regardless of potential for an underlying mood disorder. - Please reach out to our service with any additional questions or updates. Pt denies SI/HI, hallucinations, psychosis, or other acute psychiatric symptoms. No indication for inpatient psychiatric hospitalization. Psych History Identifying Data 49-year-old male admitted medically on 08/09/2020 after presenting to the ED requesting detox from alcohol and subsequent rehab placement. Psychiatric consultation was requested to evaluate the patient for reported bipolar disorder, with continue alcohol abuse/relapse. Chief Complaint "Um, I thought you guys were going to get the information from my ." History of Present Illness Parveen Pardo is a 49-year-old male admitted medically on 08/09/2020 after presenting to the ED with request for alcohol detox and subsequent rehab placement. Pt had reported he was recently at [facility] in [place] and claims that he was discharged to a homeless [place] [facility] in [place]. Pt believes he had been sleeping on the streets until his could determine his location and bring him home. Psychiatric consultation was requested to evaluate the patient for what is reported to be a history of bipolar disorder. Pt did participate with psychiatric assessment, though most of the questions were deferred to his . Pt did seem able to follow the conversation but is either choosing not to provide his own answers or truly does not recall details leading up to his admission. He is able to report a history of alcohol abuse, stating he generally drinks 5-10 shots of liquor daily. Pt was recently at [facility] in [place] for rehab, but claims he was discharged to [place] - unable to offer an explanation for why this might have occurred. Pt states he was "essentially homeless, roaming the streets, trying to charge my cell phone so I could call my ." Pt states eventually she was able to learn his location and pick him up. Pt claims that the only explanation was "I was still detoxing or something, I mean, I was probably delusional." Pt is unable to provide any meaningful information regarding the length of his rehab stay or discharge plans. He does believe he has a psychiatrist in [place], but is unaware of the name. Pt states that his claims he is bipolar, "she's always said my moods are crazy" but he is unsure of this diagnosis. He admits that the diagnosis was first discussed about 7 years ago - during a time in which he was also heavily abusing alcohol. Pt denies current SI/HI, A/V hallucinations, paranoia, or delusional thinking. He admits "I feel safe here" as "I don't feel like you guys are going to just ship me out somewhere crazy." Pt continues to encourage us to get any additional information from his . He denied other needs or concerns at this time. Past Psychiatric History Current Psychiatric Diagnosis: reported diagnosis of bipolar disorder Outpatient Services: Reportedly sees a psychiatrist in [place] via telemedicine. Past Medication Trials: Reports using gabapentin for mood stabilization. Allergies Allergy/AdvReac Type Severity Reaction Status Date / Time No Known Allergies Allergy Verified 08/09/20 21:34 Home Medications Medication Instructions Recorded Confirmed Type cholecalciferol (vitamin D3) 25 mcg PO DAILY 08/09/20 08/09/20 History [Vitamin D3] gabapentin 800 mg PO TID 08/09/20 08/09/20 History melatonin 15 mg PO HS 08/09/20 08/09/20 History trazodone 150 mg PO HS 08/09/20 08/09/20 History zinc sulfate 220 mg PO DAILY 08/09/20 08/09/20 History Family History Pt states he is adopted and is unaware of any family psychiatric history. Substance Abuse History Pt admits to consuming 10 shots of liquor daily. Pt was recently discharged from [facility] in [place]. Uses chewing tobacco regularly. Personal History Living Arrangements: Home (with and 3 children) Living Arrangements Comments: although claims he had been sent to [place] and was homeless following a recent inpatient rehab stay Employment Status: Unemployed Marital Status: Number Of Children: 3 Patient History Social History Smoking Status: Never smoker Tobacco Type: Smokeless Tobacco (Dip or Chew) Do You Dip or Chew Tobacco: Yes (1 can/day); Hx Alcohol Use: Yes Alcohol type: hard liquor Preferred Language: Tamazight Communication Ability: Effective Director Of Content And Programming Required: No marital status: Current Living Situation: Spouse Feels Safe at Home: Yes Assistive Devices: Glasses Physical Exam Psychiatric: Orientation: alert and cooperative (though claims to be a limited historian ) Apperance: appropriately dressed, appropriately groomed and appeared stated age Overweight-appearing male, seated on bed in no acute distress. Pt is appropriately dressed for setting, wearing a hospital gown. Pt is wearing corrective lenses. Level of grooming and hygiene appear adequate. Eye Contact: good eye contact Motor Behavior: + tremor (very fine tremor observed in hands bilaterally ) Observed while sitting upright in bed Speech: normal rate/rhythm/volume of speech Affect: + blunted affect (appearing somewhat subdued, but not overtly depressed) Mood: no depressed mood ("I'm ok now. I feel safe here.") Thought Process: clear/coherent thought process Thought Content: reality based without delusions; no hopelessness and no worthlessness Suicidal Thoughts: denies suicidal thoughts, denies suicidal plan and denies suicidal intent Homicidal Thoughts: denies homicidal thoughts Hallucinations: no auditory hallucinations and no visual hallucinations Cognition: attention grossly intact and language grossly intact; + recent memory not intact patient claims to not be able to recall much of his own medical history - unclear if some of this may be volitional. Estimated Intelligence: consistent with education level Insight: + fair insight Judgement: + limited judgement Vital Signs (Past 24 Hours): Last Vital Signs Temp 36.8 C 08/10/20 11:22 Pulse 88 08/10/20 11:22 Resp 18 08/10/20 11:22 BP 147/97 H 08/10/20 11:22 Pulse Ox 96 08/10/20 11:22 Review of Systems Constitutional: denied Cardiovascular: denied Respiratory: denied Gastrointestinal: denied Neurological: denied Musculoskeletal: reports left sided rib/chest pain when coughing Psychiatric: denies symptoms other than stated above Total of at least 10 systems reviewed, pertinent positives as above and in HPI. Results & Data (PSY) Medications Administered Enoxaparin Sodium (Enoxaparin Inj 40 Mg/0.4 Ml Syr) 40 mg SQ QAM [facility] Stop: 09/09/20 08:59 Last Admin: 08/10/20 08:28 Dose: 40 mg Documented by: [id number] Folic Acid (Folic Acid 1 Mg Tab) 1 mg PO QAM [facility] Stop: 09/09/20 08:59 Last Admin: 08/10/20 08:29 Dose: 1 mg Documented by: [id number] Gabapentin (Gabapentin 800 Mg Tab) 800 mg PO QID [facility] Stop: 09/09/20 08:59 Last Admin: 08/10/20 13:02 Dose: 800 mg Documented by: [id number] Admin: 08/10/20 08:28 Dose: 800 mg Documented by: [id number] Lactated Ringer's (Lr) 1,000 mls @ 115 mls/hr IV .[id number] [facility] Stop: 09/09/20 04:08 Last Admin: 08/10/20 13:02 Dose: 115 mls/hr Documented by: [id number] Infusion: 08/10/20 13:02 Dose: 115 mls/hr Documented by: [id number] Admin: 08/10/20 05:09 Dose: 115 mls/hr Documented by: [id number] Lorazepam (Lorazepam 1 Mg Tab) 1 - 3 mg PO UD PRN; Protocol PRN Reason: EtoH Withdrawal AWSS 6-10+ Stop: 09/09/20 04:08 Last Admin: 08/10/20 13:08 Dose: 1 mg Documented by: [id number] Admin: 08/10/20 08:32 Dose: 1 mg Documented by: [id number] Multivitamins (Multivitamin Tab) 1 tab PO [facility] Stop: 09/09/20 08:59 Last Admin: 08/10/20 08:28 Dose: 1 tab Documented by: [id number] Pantoprazole Sodium (Pantoprazole 40 Mg Tab) 40 mg PO [facility] Stop: 09/09/20 08:59 Last Admin: 08/10/20 08:28 Dose: 40 mg Documented by: [id number] Thiamine HCl (Thiamine Hcl 100 Mg Tab) 100 mg PO [facility] Stop: 09/09/20 08:59 Last Admin: 08/10/20 08:29 Dose: 100 mg Documented by: [id number] Coding Level of Care Code 78682 [facility] Intl Hosp Care Lvl 2
[2020-08-10] MEDS: LIDOCAINE HCL 5% OINT 30 GM TUBE EXT SCH (18:22)
[2020-08-10] MEDS: MELATONIN 3 MG TAB PO SCH (21:04)
[2020-08-10] MEDS: traZODone HCL 50 MG TAB PO SCH (21:05)
--- NOTE | 2020-08-11 05:18 | Billing Data ---
Date of Service August 11, 2020 Coding Level of Care Code 65888 Initial Inpt Care Lvl 2
[2020-08-11] MEDS: LACTATED RINGER'S 1,000 ML IV SCH ×2 (06:02→16:16)
[2020-08-11] MEDS: MULTIVITAMIN TAB PO SCH (08:36)
[2020-08-11] MEDS: THIAMINE HCL 100 MG TAB PO SCH (08:36)
[2020-08-11] MEDS: PANTOprazole 40 MG TAB PO SCH (08:36)
[2020-08-11] MEDS: FOLIC ACID 1 MG TAB PO SCH (08:36)
[2020-08-11] MEDS: GABAPENTIN 800 MG TAB PO SCH ×4 (08:36→21:27)
[2020-08-11] MEDS: ENOXAPARIN INJ 40 MG/0.4 ML SYR SQ SCH (08:37)
[2020-08-11] MEDS: LORazepam 1 MG TAB PO PRN (16:21)
--- NOTE | 2020-08-11 17:58 | Hospitalist Progress Note ---
Date of Service August 11, 2020 Assessment & Plan (1) Alcohol withdrawal: Mr. Pardo is a 49 yo M with a PMHx of alcohol use disorder and bipolar disorder who was admitted for alcohol withdrawal management and rehabilitation placement. Alcohol Withdrawal - Etoh level 174 on admission - placed on AWSS protocol with oral Ativan (1 IV dose on board in the event of agitation) - gabapentin 800 TID at home increased to 800mg QID during admission given his hx of withdrawal seizures - Patient becoming tachycardic tremulous and sweaty this evening on re examination added on IV ativan alcohol withdrawal protocol - agreeable to inpatient Etoh rehab upon discharge - high dose folate, thiamine and daily MV ordered - encourage PO fluid - zofran prn for nausea Bipolar Disorder - Unclear past medical history, patient appears to lose time, no memory of events while unwell mentally - patient is not on a mood stabilizer; - psych consult - recommends alcohol rehab and re evaluation - wants patient sent to inpatient psych facility Penile Discharge - Patient with lost time after discharge from [facility] rehab to a homeless care home in [place] rather than home with his , not sure what happened but now with urethral discharge - UA unremarkable - elevated WBC at 13 - GC Chlamydia pending - HIV negative Epigastric Pain - sounds to be GERD/PUD 2/2 EToh abuse - protonix BID PUlmonary nodule - 1.9 cm nodular opacity noted on CXR, CTA Chest; advised follow up CT in a few months DVT ppx: lovenox F/E/N: LR, protonix, Code Status: Full Code Dispo: Rehab pending alcohol withdrawal (2) Bipolar disorder: - description of manic episodes suggests type I - patient is not currently on a mood stabilizer - no apparent delusions or hallucinations on exam - psychiatry consult placed on admission for assistance with medication management in the setting of Etoh withdrawal (3) Tachycardia: - Chest CTA on admission showing no acute PE - likely secondary to Etoh withdrawal > sepsis (elevated WBC count, tachycardia) - withdrawal management as above (4) Leukocytosis: - WBC elevated to 13 - UA ordered. CXR and Chest CTA without evidence of consolidation concerning for PNA. GC/Chlamydia testing pending. - repeat CBC in am (5) Hypokalemia: - level 3.0 on admission - 30meQ replacement given in ED - LR at 11mls/hr as above - Mag level ordered - repeat BMP in am (6) Discharge from urethra in male: - gonorrhea and chlamydia testing ordered in ED - HIV testing added on admission - consider empiric antibiotics vs. awaiting GC/Ch results (7) Epigastric pain: - present on exam - suspect GERD/PUD - regular, heavy Etoh consumption is risk factor for the above - will start patient on protonix 20mg daily (8) Pulmonary nodule: - nodular opacity noted in Right upper lung field on chest CTA (STATrad); await official read - per patient - this is a known nodule, discovered ~ 2 years ago. - It has never been biopsied but he has been evaluated by a [employer] developer in the past - serial CT imaging was planned, however it had to be canceled due to his recent drinking problems/rehab stay Dispo: [facility] tele Diet: Regular Dvt ppx: Lovenox Code: Full, I discussed with patient Admission and Anticipated Discharge Date Admission Date: August 10, 2020 Supervising Physician Co-Signing Physician Notes I also saw the patient and confirmed hayes portions of the history and physical examination. Agree the impression and plan as noted in the resident documentation. Upon exam, the patient was that complaints. He continues to have the left rib pain which "pops." Does seem to be better than yesterday. He has not requested Ativan today per his report. Exam 147/92, 99, 20, 36.7, 94% on room air He is alert and oriented. Slightly diaphoretic at though the room is hot. Slight resting tremor which was not noted this morning. Heart is regular but slightly tachycardic Left-sided anterior costal discomfort, not necessarily worse with palpation Data White blood cell count 8.15, hemoglobin 14.3. Potassium 3.6. Vitamin B12 414, folate 5.9. HIV is negative. Chlamydia and gonorrhea are pending. Impression and plan Alcohol withdrawal AWSS protocol Left anterior rib pain Check rib films but doubt fracture Rib binder may provide some comfort Question bipolar disorder Psychiatry consultation Else per resident documentation Subjective Mr. Pardo is doing fairly well today, had not yet needed any of his PRN withdrawal ativan when I saw him in the morning. Still complaining of rib pain that can be pretty severe particularly with movement feels as though it's sliding or popping. Tells me that he is very concerned that he can not make decisions for his health due to his mental health issues. He wants his to make any decisions about discharge and he will try to do whatever she suggests. Spoke with who is warning that patient often gets much worse on third night of his withdrawals. She also spoke to patient's psychiatrist who recommended that he speak with the psychiatry team here because they feel he needs to go to a combined psychiatric and substance abuse rehabilitation program. Review of Systems Review of Systems: All systems reviewed & are unremarkable except as noted in HPI & below Physical Exam Physical Exam: Constitutional: Middle-aged man sitting up in bed in no acute distress but mildly uncomfortable with rib pain : Cardiac: Regular rate and rhythm no murmurs rubs or gallops appreciated Pulmonary: Lungs clear to auscultation bilaterally, no wheezes rhonchi or rales GI: Tender to palpation along left lower intercostal muscles and ribs. Mild epigastric pain to palpation. No rebound or guarding. Nondistended, hypoactive bowel sounds psychiatric: AAOx 4, euthymic affect Results & Data Results & Data ([facility]) Vital Signs (Past 12 Hours) Vital Signs Temp Pulse Pulse Resp BP BP Pulse Ox 08/11/20 17:53 131 H 20 147/92 H 94 08/11/20 15:14 36.7 C 101 H 20 158/92 H 95 08/11/20 15:00 110 H 08/11/20 11:03 36.8 C 99 H 18 136/95 95 08/11/20 07:39 36.6 C 77 20 122/81 95 08/11/20 07:00 76 Resident Activity Tracking Resident Involvement: Resident Care Provided Care Provided: Adult Hospital Medicine
[2020-08-11] MEDS ORDERED: LORazepam 3 MG/6 ML VIAL IV PRN (18:07)
[2020-08-11] MEDS ORDERED: ATIVAN IV ALCOHOL WITHDRAWL IV PRN (18:07)
[2020-08-11] MEDS ORDERED: LORazepam 1 MG/2 ML VIAL IV PRN (18:07)
[2020-08-11] MEDS ORDERED: LORazepam 2 MG/4 ML VIAL IV PRN (18:07)
[2020-08-11] MEDS: traZODone HCL 50 MG TAB PO SCH (21:31)
[2020-08-11] MEDS: MELATONIN 3 MG TAB PO SCH (21:32)
[2020-08-12] MEDS: LACTATED RINGER'S 1,000 ML IV SCH ×2 (00:27→08:28)
[2020-08-12] MEDS: GABAPENTIN 800 MG TAB PO SCH ×4 (08:23→21:08)
[2020-08-12] MEDS: MULTIVITAMIN TAB PO SCH (08:23)
[2020-08-12] MEDS: PANTOprazole 40 MG TAB PO SCH (08:23)
[2020-08-12] MEDS: THIAMINE HCL 100 MG TAB PO SCH (08:23)
[2020-08-12] MEDS: FOLIC ACID 1 MG TAB PO SCH (08:23)
[2020-08-12] MEDS: ENOXAPARIN INJ 40 MG/0.4 ML SYR SQ SCH (08:23)
[2020-08-12] MEDS: LIDOCAINE HCL 5% OINT 30 GM TUBE EXT SCH (08:24)
--- NOTE | 2020-08-12 08:53 | Hospitalist Progress Note ---
Date of Service August 12, 2020 Assessment & Plan (1) Alcohol withdrawal: Mr. Pardo is a 49 yo M with a PMHx of alcohol use disorder and bipolar disorder who was admitted for alcohol withdrawal management and rehabilitation placement. Alcohol Withdrawal - Etoh level 174 on admission - placed on AWSS protocol with oral Ativan (1 IV dose on board in the event of agitation) - gabapentin 800 TID at home increased to 800mg QID during admission given his hx of withdrawal seizures - Patient becoming tachycardic tremulous and sweaty evening of 08/11 on re examination added on IV ativan alcohol withdrawal protocol - Only has required Ativan 2mg IV yesterday approx 6pm and Ativan 1mg PO earlier approx 4:20pm. None so far today. - Mr. Pardo agreeable to inpatient Etoh rehab upon discharge; requesting Spouse be decision maker on decision. - Spouse previously requested our psych team speak with patient's psych physician. Phone calls have been made to patient's psych physician with messages left to return to discuss as request as requested by spouse. She notes she will email doctor to try to expedite. Will ensure that disposition decision is aimed toward patient safety. - Spouse today wishes inpatient pysch treatment but discussed that this might not be an option if recommendations are for dual or rehab first; without accepting inpatient psych physician, unable to guarantee this. Discussed that expedited care could involve rehab then psych care or dual facility. Provided reassurance that we will keep her up to date with treatment and that she will be involved in decision making. - c/w high dose folate, thiamine and daily MV - encourage PO fluid; IVF stopped - zofran prn for nausea - Continue with telemetry and continued monitoring for further withdrawal. Spouse notes that with prior timing of withdrawal episodes tonight he may expose self or have AMS. 1:1 Obs PRN order placed. Bipolar Disorder vs. Wernicke - Unclear past medical history, patient appears to lose time, no memory of events while unwell mentally - patient is not on a mood stabilizer; - psych consult - recommends alcohol rehab and re evaluation - wants patient sent to inpatient psych facility and also noted as above. - Based on 's descriptions, it appears Tristin could be confabulating from possible wernicke from longstanding alcohol use. Penile Discharge - Patient with lost time after discharge from [facility] rehab to a homeless long-term in [place] rather than home with his , not sure what happened but now with urethral discharge - UA unremarkable - elevated WBC at 13 - GC Chlamydia pending - HIV negative Epigastric Pain - sounds to be GERD/PUD 2/2 EToh abuse - protonix BID PUlmonary nodule - 1.9 cm nodular opacity noted on CXR, CTA Chest; advised follow up CT in a few months DVT ppx: lovenox F/E/N: LR, protonix, Code Status: Full Code Dispo: Rehab pending alcohol withdrawal (2) Bipolar disorder: - description of manic episodes suggests type I - patient is not currently on a mood stabilizer - no apparent delusions or hallucinations on exam - psychiatry consult placed on admission for assistance with medication management in the setting of Etoh withdrawal (3) Tachycardia: - Chest CTA on admission showing no acute PE - likely secondary to Etoh withdrawal - withdrawal management as above (4) Leukocytosis: Resolved - WBC of 13; now WNL - UA ordered. CXR and Chest CTA without evidence of consolidation concerning for PNA. GC/Chlamydia testing pending. - repeat CBC in am (5) Hypokalemia: - level 3.0 on admission - 30meQ replacement given in ED - resolved today with value 3.6. (6) Discharge from urethra in male: - gonorrhea and chlamydia testing ordered in ED - HIV testing added on admission and negative - awaiting GC/Ch results for further treatment (7) Epigastric pain: - present on exam - suspect GERD/PUD - regular, heavy Etoh consumption is risk factor for the above - currently on protonix 20mg daily (8) Pulmonary nodule: - nodular opacity noted in Right upper lung field on chest CTA (STATrad); await official read - per patient - this is a known nodule, discovered ~ 2 years ago. - It has never been biopsied but he has been evaluated by a immigration specialist in the past - serial CT imaging was planned, however it had to be canceled due to his recent drinking problems/rehab stay Dispo: Aparna segura Diet: Regular Dvt ppx: Lovenox Code: Full Admission and Anticipated Discharge Date Admission Date: August 10, 2020 Supervising Physician Co-Signing Physician Notes I also saw the patient and confirmed hayes portions of the history and physical examination. Agree the impression and plan as noted in the resident documentation. Upon exam, the patient was without complaints except for the left anterior rib discomfort. Exam 136/92, 95, 18, 36.7, 94% on room air He is alert and oriented. No tremors are appreciated Affect is appropriate. Reactive. Speech is nonpressured. No agitation appreciated. Impression and plan Alcohol withdrawal Question bipolar disorder Psychiatry consultation, case management He would like to seek inpatient rehabilitation and this would be appropriate Left anterior rib pain Rib binder for comfort review of chest x-ray and CT scan does not demonstrate bony pathology. Else per resident documentation Subjective Mr. Pardo notes feeling better this AM. He states he had trouble sleeping overnight. He notes mild tremor. He denies visual or audio hallucinations. There were no acute events reported by overnight staff. He was medicated with Ativan 2mg IV yesterday approx 6pm and Ativan 1mg PO earlier approx 4:20pm. He required no Ativan overnight. He mentions to contact regarding discharge planning for further psychiatric care. He notes he continues to have left sided rib pain. He did use the abdominal binder for a little but didn't note significant improvement. Yesterday, there was request by for our psych team to speak to patient's family psych. Per request, our Psych nurse liaison has made attempts to contact and has left messages. Discussed with Spouse today and provided update. She notes that she would wish that inpatient psychiatric care would be considered first prior to rehab/inpatient psych dual facility. She notes bad experience at prior dual facility and that facility was more rehab focused than mental health. Noted that our psych liaison has not been able to reach their psych doctor. She also experienced traumatic experience of being transported to [place] from prior rehab. She notes she has agoraphobia and had to drive to find/get him, when facility did not call her on discharge. She notes with agoraphobia she will screen calls of numbers that are unrecognized, but doubts she missed call. She states that his psychiatrist is their family psychiatrist and that she will email doctor as "he usually works weekends." She provides history that Parveen has history of delusions and confabulations. She is concerned that tonight he will expose himself to staff or will behave poorly as tonight will be 72 hours post last drink and he has done same in the past. Physical Exam Constitutional: WD/WN, vitals as above cooperative and comfortable; no acute distress and not ill appearing Eyes: PERRL, conjunctivae normal, anicteric sclerae ENMT: external ear and nose normal, oropharynx normal Neck: trachea midline Respiratory: normal respiratory effort, lungs clear to auscultation Cardiovascular: RRR, no murmur, no edema Gastrointestinal (Abdomen): Percussion/Palpation: abdomen soft; abdomen nontender, no guarding and abdomen not rigid Musculoskeletal: Head/Neck/Chest: normocephalic and head atraumatic Skin: no rashes, warm and dry Neurologic: moves all extremities and awake; no focal motor deficits Motor/Sensory: + tremor (mild bilateral hands with outstretched arms) Cranial Nerves: EOM intact bilaterally Psychiatric: A+Ox3, euthymic affect Eye Contact: good eye contact Results & Data Results & [facility] ([facility]) Vital Signs (Past 12 Hours) Vital Signs Temp Pulse Pulse Resp BP BP Pulse Ox 08/12/20 07:24 36.4 C L 79 18 142/95 H 95 08/12/20 07:12 73 08/12/20 02:51 36.5 C 72 18 129/89 94 08/12/20 02:33 107 H 08/11/20 23:01 36.6 C 103 H 18 145/92 H 93 Laboratory Results Laboratory Results - last 24 hr 08/10/20 07:08 HIV 1&2 Ab/P24 Ag 4thGn Neg Medications Administered Enoxaparin Sodium (Enoxaparin Inj 40 Mg/0.4 Ml Syr) 40 mg SQ [facility] Stop: 09/09/20 08:59 Last Admin: 08/12/20 08:23 Dose: 40 mg Documented by: [id number] Admin: 08/11/20 08:37 Dose: 40 mg Documented by: [id number] Admin: 08/10/20 08:28 Dose: 40 mg Documented by: [id number] Folic Acid (Folic Acid 1 Mg Tab) [facility] [place] Stop: 09/09/20 08:59 Last Admin: 08/12/20 08:23 Dose: 1 mg Documented by: [id number] Admin: 08/11/20 08:36 Dose: 1 mg Documented by: [id number] Admin: 08/10/20 08:29 Dose: 1 mg Documented by: [id number] Gabapentin (Gabapentin 800 Mg Tab) 800 mg PO QID [facility] Stop: 09/09/20 08:59 Last Admin: 08/12/20 08:23 Dose: 800 mg Documented by: [id number] Admin: 08/11/20 21:27 Dose: 800 mg Documented by: [id number] Admin: 08/11/20 16:16 Dose: 800 mg Documented by: [id number] Admin: 08/11/20 13:50 Dose: 800 mg Documented by: [id number] Admin: 08/11/20 08:36 Dose: 800 mg Documented by: [id number] Admin: 08/10/20 21:05 Dose: 800 mg Documented by: [id number] Admin: 08/10/20 16:15 Dose: 800 mg Documented by: [id number] Admin: 08/10/20 13:02 Dose: 800 mg Documented by: [id number] Admin: 08/10/20 08:28 Dose: 800 mg Documented by: [id number] Lorazepam (Ativan) 2 mg in 4 mls @ 4 mls/min IV UD PRN; Protocol PRN Reason: EtOH Withdrawl AWSS Score 8,9 Stop: 09/10/20 18:06 Last Admin: 08/11/20 18:23 Dose: 4 mls/min Documented by: [id number] Lidocaine (Lidocaine Hcl 5% Oint 30 Gm Tube) 1 appln EXT DAILY SERGIO Stop: 09/10/20 08:59 Last Admin: 08/12/20 08:24 Dose: 1 appln Documented by: [id number] Admin: 08/10/20 18:22 Dose: 1 appln Documented by: [id number] Lorazepam (Lorazepam 1 Mg Tab) 1 - 3 mg PO UD PRN; Protocol PRN Reason: EtoH Withdrawal AWSS 6-10+ Stop: 09/09/20 04:08 Last Admin: 08/11/20 16:21 Dose: 1 mg Documented by: [id number] Admin: 08/10/20 21:14 Dose: 1 mg Documented by: [id number] Admin: 08/10/20 13:08 Dose: 1 mg Documented by: [id number] Admin: 08/10/20 08:32 Dose: 1 mg Documented by: [id number] Melatonin (Melatonin 3 Mg Tab) 15 mg PO HS [facility] Stop: 09/09/20 20:59 Last Admin: 08/11/20 21:32 Dose: 15 mg Documented by: [id number] Admin: 08/10/20 21:04 Dose: 15 mg Documented by: [id number] Multivitamins (Multivitamin Tab) 1 tab PO [facility] Stop: 09/09/20 08:59 Last Admin: 08/12/20 08:23 Dose: 1 tab Documented by: [id number] Admin: 08/11/20 08:36 Dose: 1 tab Documented by: [id number] Admin: 08/10/20 08:28 Dose: 1 tab Documented by: [id number] Pantoprazole Sodium (Pantoprazole 40 Mg Tab) 40 mg PO [facility] Stop: 09/09/20 08:59 Last Admin: 08/12/20 08:23 Dose: 40 mg Documented by: [id number] Admin: 08/11/20 08:36 Dose: 40 mg Documented by: [id number] Admin: 08/10/20 08:28 Dose: 40 mg Documented by: [id number] Thiamine HCl (Thiamine Hcl 100 Mg Tab) 100 mg PO [facility] Stop: 09/09/20 08:59 Last Admin: 08/12/20 08:23 Dose: 100 mg Documented by: [id number] Admin: 08/11/20 08:36 Dose: 100 mg Documented by: [id number] Admin: 08/10/20 08:29 Dose: 100 mg Documented by: [id number] Trazodone HCl (Trazodone Hcl 50 Mg Tab) 150 mg PO [facility] Stop: 09/09/20 20:59 Last Admin: 08/11/20 21:31 Dose: 150 mg Documented by: [id number] Admin: 08/10/20 21:05 Dose: 150 mg Documented by: [id number] Resident Activity Tracking Resident Involvement: Resident Care Provided Care Provided: Adult [facility] Medicine
--- NOTE | 2020-08-12 16:41 | XRay Report ---
XR ribs LT min 2V w CXR1V CLINICAL HISTORY: Left rib pain status post trauma COMPARISON STUDY: Chest x-ray dated 08/09/2020 FINDINGS: Chronic electrodes obscure portions of the chest on the PA erect view. The previously identified righ t upper lobe opacity is obscured the PA view, but is visualized on 1 of the supplemental rib series. There is no pneumothorax. Multiple views of the left ribs reveal no acute fractures. IMPRESSION: 1. No evidence of pneumothorax. No left-sided rib fractures identified. 2. Redemonstration of a right superhilar tubular opacity ACT 112: Negative or not required by law. Electronically signed by: Tonio Brar M.D. 08/12/2020 4:39 PM
[2020-08-12] MEDS: MELATONIN 3 MG TAB PO SCH (21:08)
[2020-08-12] MEDS: traZODone HCL 50 MG TAB PO SCH (21:09)
--- NOTE | 2020-08-13 06:51 | Hospitalist Progress Note ---
Date of Service August 13, 2020 Assessment & Plan (1) Alcohol withdrawal: Mr. Pardo is a 49 yo M with a PMHx of alcohol use disorder and bipolar disorder who was admitted for alcohol withdrawal management and rehabilitation placement. Alcohol Withdrawal - Etoh level 174 on admission; Last alcoholic drink was 4 hours prior to arrival to ED; approx 4pm on 08/09/20. - placed on AWSS protocol with oral Ativan (1 IV dose on board in the event of agitation) - gabapentin 800 TID at home increased to 800mg QID during admission given his hx of withdrawal seizures - Patient becoming tachycardic tremulous and sweaty evening of 08/11 on re examination added on IV ativan alcohol withdrawal protocol - Only has required Ativan 2mg IV yesterday approx 6pm and Ativan 1mg PO earlier approx 4:20pm. None so far today. - Mr. Pardo agreeable to inpatient Etoh rehab upon discharge; requesting Spouse be decision maker on decision. - Spouse previously requested our psych team speak with patient's psych physician. Phone calls have been made to patient's psych physician with messages left to return to discuss as request as requested by spouse. She notes she will email doctor to try to expedite. Will ensure that disposition decision is aimed toward patient safety. - Spouse on 08/12/20 phone call had preference of wishes inpatient pysch treatment but discussed that this might not be an option if recommendations are for dual or rehab first; without accepting inpatient psych physician, unable to guarantee this. Discussed that expedited care could involve rehab then psych care or dual facility. Provided reassurance that we will keep her up to date with treatment and that she will be involved in decision making. - c/w high dose folate, thiamine and daily MV - encourage PO fluid; IVF stopped - zofran prn for nausea - Continue with telemetry and continued monitoring for further withdrawal. On 08/12/20 Spouse noted that with prior timing of withdrawal episodes that he may expose self or have AMS; however patient had no acute behavioral issues or AMS; acted appropriately. 1:[address] order in [address]. Bipolar Disorder vs. Wernicke - Unclear past medical history, patient appears to lose time, no memory of events while unwell mentally - patient is not on a mood stabilizer; - psych consult - recommends alcohol rehab and re evaluation - wants patient sent to inpatient psych facility and also noted as above. - Based on 's descriptions, it appears Parveen could be confabulating from possible wernicke from longstanding alcohol use. Penile Discharge - Patient with lost time after discharge from [facility] rehab to a homeless residential in [place] rather than home with his , not sure what happened but now with urethral discharge - UA unremarkable - elevated WBC at 13 nut returned to WNL - GC Chlamydia still pending - HIV negative Epigastric Pain - sounds to be GERD/PUD 2/2 EToh abuse - protonix BID PUlmonary nodule - 1.9 cm nodular opacity noted on CXR, CTA Chest; advised follow up CT in a few months Insomnia Home Melatonin decreased from 15mg to 6mg. Literature supports that dose greater than 6mg can exacerbate insomnia. DVT ppx: lovenox F/E/N: LR, protonix, Code Status: Full Code Dispo: Rehab pending alcohol withdrawal (2) Bipolar disorder: - description of manic episodes suggests type I - patient is not currently on a mood stabilizer - no apparent delusions or hallucinations on exam - psychiatry consult placed on admission for assistance with medication management in the setting of Etoh withdrawal (3) Tachycardia: - Chest CTA on admission showing no acute PE - likely secondary to Etoh withdrawal - withdrawal management as above - still midlly tachycardic today, will continue with tele. (4) Leukocytosis: Resolved - WBC of 13; now WNL - UA ordered. CXR and Chest CTA without evidence of consolidation concerning for PNA. GC/Chlamydia testing pending. (5) Hypokalemia: - level 3.0 on admission - 30meQ replacement given in ED - resolved with value 3.6. (6) Discharge from urethra in male: - gonorrhea and chlamydia testing ordered in ED - HIV testing added on admission and negative; informed per patient's wishes, patient informed. - awaiting GC/Ch results for further treatment (7) Epigastric pain: - present on exam - suspect GERD/PUD - regular, heavy Etoh consumption is risk factor for the above - currently on protonix 20mg daily (8) Pulmonary nodule: - nodular opacity noted in Right upper lung field on chest CTA (STATrad); await official read - per patient - this is a known nodule, discovered ~ 2 years ago. - It has never been biopsied but he has been evaluated by a hvac journeyman in the past - serial CT imaging was planned, however it had to be canceled due to his recent drinking problems/rehab stay Dispo: Aparna zuleta tele Diet: Regular Dvt ppx: Lovenox Code: Full Admission and Anticipated Discharge Date Admission Date: August 10, 2020 Supervising Physician Co-Signing Physician Notes I also saw the patient and confirmed hayes portions of the history and physical examination. Agree the impression and plan as noted in the resident documentation. Upon exam, the patient was without complaints. Exam 139/99, 169/95 (this seems to be the exception rather than the norm), 99, 18, 37.1, 96% room air He is alert and oriented. No tremors are appreciated Affect is appropriate. Reactive. Speech is nonpressured. No agitation appreciated. Data Creatinine 0.69 Impression and plan Alcohol withdrawal Question bipolar disorder Psychiatry consultation, case management He would like to seek inpatient rehabilitation and this would be appropriate; he would like to be at a facility that would also evaluate/treat his psychiatric diagnoses Left anterior rib pain Rib binder for comfort; review of chest x-ray and CT scan does not demonstrate bony pathology. Else per resident documentation Subjective He notes still having left sided rib pain and also difficulty with sleeping overnight. He notes he still is having some tremors, but denies any audio/visual hallucinations. Denies chest pain, shortness of breath, fever, chills, productive cough. No acute events reported overnight; no AMS or changes in behavior. Physical Exam Constitutional: WD/WN, vitals as above cooperative and comfortable; no acute distress and not ill appearing Eyes: PERRL, conjunctivae normal, anicteric sclerae ENMT: external ear and nose normal, oropharynx normal Neck: trachea midline Respiratory: normal respiratory effort, lungs clear to auscultation Cardiovascular: RRR, no murmur, no edema Gastrointestinal (Abdomen): Percussion/Palpation: abdomen soft; abdomen nontender, no guarding and abdomen not rigid Musculoskeletal: Head/Neck/Chest: normocephalic and head atraumatic Skin: no rashes, warm and dry Neurologic: moves all extremities and awake; no focal motor deficits Motor/Sensory: + tremor (mild bilateral hands with outstretched arms) Cranial Nerves: EOM intact bilaterally Psychiatric: A+Ox3, euthymic affect Eye Contact: good eye contact Results & Data Results & Data ([facility]) Vital Signs (Past 12 Hours) Vital Signs Temp Pulse Pulse Resp BP BP Pulse Ox 08/13/20 03:35 36.7 C 84 19 125/85 96 08/13/20 00:27 106 H 08/12/20 23:09 36.9 C 107 H 18 126/88 93 08/12/20 22:17 36.8 C 107 H 18 139/97 95 08/12/20 19:06 36.8 C 100 H 18 142/98 H 94 Resident Activity Tracking Resident Involvement: Resident Care Provided Care Provided: Adult Hospital Medicine
[2020-08-13 06:55] LABS: Est GFR (African American) 130.1; Est GFR (Non-African American) 112.3
[2020-08-13] MEDS: GABAPENTIN 800 MG TAB PO SCH ×4 (07:59→20:27)
[2020-08-13] MEDS: THIAMINE HCL 100 MG TAB PO SCH (07:59)
[2020-08-13] MEDS: PANTOprazole 40 MG TAB PO SCH (07:59)
[2020-08-13] MEDS: FOLIC ACID 1 MG TAB PO SCH (07:59)
[2020-08-13] MEDS: ENOXAPARIN INJ 40 MG/0.4 ML SYR SQ SCH (07:59)
[2020-08-13] MEDS: MULTIVITAMIN TAB PO SCH (07:59)
[2020-08-13] MEDS: LIDOCAINE HCL 5% OINT 30 GM TUBE EXT SCH (08:00)
[2020-08-13] MEDS: ACETAMINOPHEN 325 MG TAB PO PRN (20:26)
[2020-08-13] MEDS: traZODone HCL 50 MG TAB PO SCH (20:32)
[2020-08-13] MEDS: MELATONIN 3 MG TAB PO SCH (21:59)
--- NOTE | 2020-08-14 06:50 | Hospitalist Progress Note ---
Date of Service August 14, 2020 Assessment & Plan (1) Alcohol abuse: Mr. Pardo is a 49 yo M with a PMHx of alcohol use disorder and bipolar disorder who was admitted for alcohol withdrawal management and rehabilitation placement. Alcohol Withdrawal - Etoh level 174 on admission; Last alcoholic drink was 4 hours prior to arrival to ED; approx 4pm on 08/09/20. - Initially on AWSS protocol with oral Ativan and Ativan PRN in the event of agitation - Ativan discontinued today as patient has not required dosing since 08/11/20 - Gabapentin reduced back to home dosing of Gabapentin 800mg TID - Patient and agreeable to discharge to rehab facility, Case management placing referral to [facility] - Continue Folate and Thiamine - Zofran PRN for nausea - 1:1 obs PRN for history of self exposure during withdrawals. - Thiamine level drawn, pending History of Psychiatric disorder, ?Bipolar Disorder - Unclear past medical history, patient appears to lose time, no memory of events while unwell mentally - Patient noting that he has seen a psychiatrist in [place] once, though no formal diagnosis. - Psych consulted, recommending alcohol rehab prior to reevaluation. Penile Discharge - Patient with lost time after discharge from [facility] rehab to a homeless detention in [place] rather than home with his , not sure what happened but now with urethral discharge - UA unremarkable - elevated WBC at 13 but returned to WNL - GC Chlamydia still negative - HIV negative Epigastric Pain - sounds to be GERD/PUD 2/2 EToh abuse - protonix BID Pulmonary nodule - 1.9 cm nodular opacity noted on CXR, CTA Chest; advised follow up CT in a 6 months Insomnia -Home Melatonin decreased from 15mg to 6mg. Literature supports that dose greater than 6mg can exacerbate insomnia. -Continue home Trazodone 150mg qhs DVT ppx: lovenox F/E/N: Regular diet Code Status: Full Code Dispo: M/S Tele, rehab pending approval from [facility]. At this time patient medically stable for discharge to rehab from an alcohol withdrawal perspective. Admission and Anticipated Discharge Date Admission Date: August 10, 2020 Supervising Physician Co-Signing Physician Notes I personally examined the patient and verified all hayes points of history and exam, discussed case, and agree with decision making with Dr Foley. no new complaints. on video chat. she notes she would prefer he goes to dual dx facility but understands that is not entirely under our control vitals noted nad heent nc at mmm breathing unlabored no accessory muscles good effort no focal neuro deficits bipolar, etoh abuse -stable for rehab once available -ongoing psych care as outpt otherwise as above Subjective Patient evaluated at the bedside this AM. Patient noting that over all he is feeling much better. States that the anxiety has greatly improved and that he is willing to go to either rehab, inpatient psych, or a dual facility. Patient requesting that we speak with his in regards to matters pertaining to his future directions. He notes he is motivated and interested in moving forward past his alcohol use and his underlying psychiatric condition. Review of Systems Constitutional: no fever and no chills Eyes: no worsening vision Ear, Nose, Mouth, Throat: no dizziness Respiratory: no cough, no dyspnea, no dyspnea on exertion and no pain on inspiration Cardiovascular: no chest pain, no radiating jaw, neck or arm pain, no dyspnea, no dyspnea on exertion, no palpitations and no edema Gastrointestinal: no abdominal pain, no nausea, no vomiting, no constipation and no diarrhea/loose stools Genitourinary: no dysuria Psychiatric: no anxiety Physical Exam Constitutional: WD/WN, vitals as above Eyes: PERRL, conjunctivae normal, anicteric sclerae Neck: trachea midline, no thyromegaly Respiratory: normal respiratory effort, lungs clear to auscultation Cardiovascular: RRR, no murmur, no edema Gastrointestinal (Abdomen): normal bowel sounds, soft, nontender, no hepatosplenomegaly Psychiatric: A+Ox3, euthymic affect Results & Data Results & Data ([facility]) Vital Signs (Past 12 Hours) Vital Signs Temp Pulse Pulse Resp BP Pulse Ox 08/14/20 04:26 36.5 C 70 16 118/81 94 08/13/20 23:22 97 H 08/13/20 22:56 36.7 C 91 H 18 119/76 96 08/13/20 19:18 37.0 C 93 H 18 147/95 H 95 Resident Activity Tracking Resident Involvement: Resident Care Provided Care Provided: Adult Hospital Medicine
[2020-08-14 08:02] LABS: Chlamydia Trach RNA NOT DETECTED (NOT DETECTED); GC (Neis gonorrhoeae) RNA NOT DETECTED (NOT DETECTED)
[2020-08-14] MEDS: GABAPENTIN 800 MG TAB PO SCH ×4 (08:12→20:38)
[2020-08-14] MEDS: PANTOprazole 40 MG TAB PO SCH (08:13)
[2020-08-14] MEDS: ACETAMINOPHEN 325 MG TAB PO PRN (08:13)
[2020-08-14] MEDS: THIAMINE HCL 100 MG TAB PO SCH (08:14)
[2020-08-14] MEDS: ENOXAPARIN INJ 40 MG/0.4 ML SYR SQ SCH (08:14)
[2020-08-14] MEDS: MULTIVITAMIN TAB PO SCH (08:14)
[2020-08-14] MEDS: FOLIC ACID 1 MG TAB PO SCH (08:14)
[2020-08-14] MEDS: LIDOCAINE HCL 5% OINT 30 GM TUBE EXT SCH (08:14)
--- NOTE | 2020-08-14 18:14 | Billing Data ---
Date of Service August 14, 2020 Coding Level of Care Code 25573 Subseq Hosp Care Lvl 2
[2020-08-14] MEDS: traZODone HCL 50 MG TAB PO SCH (20:38)
[2020-08-14] MEDS: MELATONIN 3 MG TAB PO SCH (21:55)
--- NOTE | 2020-08-15 06:45 | Hospitalist Progress Note ---
Date of Service August 15, 2020 Assessment & Plan Admission and Anticipated Discharge Date Admission Date: August 10, 2020 Results & Data Results & Data ([facility]) Vital Signs (Past 12 Hours) Vital Signs Temp Pulse Pulse Resp BP Pulse Ox 08/15/20 03:58 36.7 C 80 14 99/66 L 93 08/15/20 01:57 86 08/14/20 23:31 36.9 C 80 16 121/87 95 08/14/20 19:29 36.7 C 91 H 18 134/88 94
[2020-08-15 07:22] VITALS: TEMP 97.9
[2020-08-15] MEDS: ACETAMINOPHEN 325 MG TAB PO PRN (07:35)
[2020-08-15] MEDS: LIDOCAINE HCL 5% OINT 30 GM TUBE EXT SCH (07:36)
[2020-08-15] MEDS: GABAPENTIN 800 MG TAB PO SCH ×2 (07:38→12:29)
[2020-08-15] MEDS: THIAMINE HCL 100 MG TAB PO SCH (07:38)
[2020-08-15] MEDS: FOLIC ACID 1 MG TAB PO SCH (07:39)
[2020-08-15] MEDS: MULTIVITAMIN TAB PO SCH (07:39)
[2020-08-15] MEDS: ENOXAPARIN INJ 40 MG/0.4 ML SYR SQ SCH (07:39)
[2020-08-15] MEDS: PANTOprazole 40 MG TAB PO SCH (07:39)
--- NOTE | 2020-08-15 10:54 | Discharge Summary ---
Date of Service August 15, 2020 Admission HPI Per Admitting Provider Mr. Pardo is a 49 yo gentleman with a PMHx of alcohol use disorder and bipolar disorder. He presents today for management of alcohol withdrawal symptoms. He has a history of many previous withdrawal episodes - several of which were associated with seizures. He says he typically drinks ~10 shots of hard liquor daily - no beer or wine. His last drink was ~ 4 hours [employer]. He says if he had it his way, he would have a drink first thing every morning ("eye vp training"). He has been to inpatient rehab for alcoholism several times in the past - most recently in June 2020 at [facility] in [place], [place]. He did not have a good experience there. He describes significant overlap between his drinking problems and his mental health condition - he says that when he completed his treatment at [facility], he was discharged to a homeless half-way in the [place] area, rather than back at home with his . Apparently he was sleeping on the streets for several days and his was able to track him down. It is unclear why he was discharged to a homeless half-way rather than to home - but Mr. Pardo admits that his bipolar was "in effect" at the time. His was present in the room during the exam - she supplied most of the history. She characterizes this occurrence (being homeless in the [place] area for several days) as a "fugue," or "dissociative episode" whereas Mr. Pardo describes it as "donavon." He does work with a psychiatric who is based out of the [place] area. This provider is apparently still caring for him remotely via telehealth. When asked what he takes for his bipolar disorder, Mr. Pardo replied, "Gabapentin." He did say that his psychiatrist wanted to start him on Latuda - but he has not actually started this medication yet due to affordability issues. They are working to find a cheaper alternative. Mr. Pardo was apparently seen in the [facility] ED on 07/06/20 - this visit seemingly took place immediately after his located him on the streets of [place]. Apparently Mrs. Pardo become quite irate - she was frustrated with the fact that physicians were allowing Mr. Pardo to make his own medical decisions (she felt as though he was mentally incompetent). [facility] social work, crisis work, and the police were involved with his ED visit - ultimately Mr. Pardo refused further care and drove home to [place], [place] with his . Of note, he mentioned concern of penile discharge and dysuria. After his left - he said there were concerns "from both ends," about "relationship lies." He requested STD testing. He is motivated to quit drinking and is agreeable to inpatient rehab placement following this hospitalization. He would prefer not to go back to [facility] in [place]. On arrival to the ED, he was afebrile, tachycardic to 101, BP 146/88, RR 16, 98 on room air. His WBC was mildly elevated to 12. Hgb normal, MCV 88. D-dimer not elevated. K low at 3.0; electrolytes otherwise stable. Creatinine normal. AST and ALT normal. Alk phos elevated to 161. Trop < 0.015. Lipase not elevated. Eoth 174. Gonorrhea and chylamdia pending. CXR showing no acute process. Chest CTA showing no evidence of acute PE; RUL nodular opacity. Patient was given 2mg of IV Ativan x 2. His potassium was replaced with 20meq oral Kcl and 10meq IV. Admission Exam Per Admitting Provider Constitutional: WD/WN, vitals as above cooperative; no acute distress Eyes: + anicteric sclerae ENMT: external ear and nose normal, oropharynx normal Neck: normal visual inspection and trachea midline Respiratory: normal respiratory effort, lungs clear to auscultation Auscultation: + wheezes (on expiration ); no crackles and no rales Cardiovascular: Rate/Rhythm: regular rhythm and + tachycardic Heart Sounds: normal S1 and normal S2 Extremities: no pedal edema Gastrointestinal (Abdomen): Inspection/Auscultation: abdomen normal to inspection and normal bowel sounds Percussion/Palpation: + abdomen tender (epigastric area) and abdomen soft; no guarding, abdomen not rigid and no hepatosplenomegaly Skin: no rashes, warm and dry Neurologic: moves all extremities Psychiatric: A+Ox3, euthymic affect Principal Diagnosis Alcohol Withdrawal Discharge Exam Constitutional WD/WN, vitals as above Eyes PERRL, conjunctivae normal, anicteric sclerae Neck trachea midline, no thyromegaly Respiratory normal respiratory effort, lungs clear to auscultation Cardiovascular RRR, no murmur, no edema Gastrointestinal (Abdomen) normal bowel sounds, soft, nontender, no hepatosplenomegaly Musculoskeletal Ecchymosis on the lower R hip/low back - outlined and has been receeding from line. Neurologic PERRL, EOMI, accommodation nl, no face palsy, no dysarthria Psychiatric A+Ox3, euthymic affect Discharge Data Allergies Allergy/AdvReac Type Severity Reaction Status Date / Time No Known Allergies Allergy Verified 08/09/20 21:34 Consultations 08/09/20 23:38 ED Decision to Admit Stat 08/10/20 04:09 Consult Psychiatry Routine Ordered Studies 08/09/20 22:17 CT angio chest PE protocol Stat Hospital Course (1) Alcohol abuse: Mr. Pardo is a 49 yo M with a PMHx of alcohol use disorder and bipolar disorder who was admitted for alcohol withdrawal management and rehabilitation placement. Alcohol Withdrawal - ETOH level 174 on admission; Last alcoholic drink was 4 hours prior to arrival to ED; approx 4pm on 08/09/20. - Initially on AWSS protocol with oral Ativan and Ativan PRN in the event of agitation, has not required use since 08/11/20 - Gabapentin reduced back to home dosing of Gabapentin 800mg TID, continue Gabapentin 800mg TID after discharge - Continue Folate and Thiamine - Thiamine level drawn, pending, will call patient once results return in roughly 1-2 weeks. - Patient stable for discharge to [facility] for alcohol rehab. History of Psychiatric disorder, ?Bipolar Disorder - Unclear past medical history, patient appears to lose time, no memory of events while unwell mentally - Patient noting that he has seen a psychiatrist in [place] once, though no formal diagnosis. - Psych consulted, recommending alcohol rehab prior to reevaluation. - Recommend patient continue to follow up with his outpatient psychiatrist upon discharge from alcohol rehab facility. Penile Discharge - Patient with lost time after discharge from [facility] rehab to a homeless half-way in [place] rather than home with his , not sure what happened but now with urethral discharge - UA unremarkable - elevated WBC at 13 but returned to WNL - GC Chlamydia still negative - HIV negative Epigastric Pain - sounds to be GERD/PUD 2/2 EToh abuse - protonix 40mg PO BID Pulmonary nodule - 1.9 cm nodular opacity noted on CXR, CTA Chest; advised follow up CT in a 6 months Insomnia -Continue Melatonin 6mg QHS -Continue home Trazodone 150mg qhs Code Status: Full Code Dispo: Discharge to [facility] at Noon on 08/15/20 Total Time Total Time Spent Total Time Spent (In Minutes): <30 Discharge Plan Discharge Items Patient Disposition: Drug & Alcohol Rehab Reason For Visit: ALCOHOL WITHDRAWAL Discharge Diagnosis: Alcohol Withdrawal Activity: Per Instructions section Non-emergency contact: Primary Care Provider and Psychiatrist Call non-emergency contact if: you have any medication questions and your symptoms worsen Follow-up/Referrals: PCP,NO [Primary Care Provider] - Diet: Regular Addtl Attending Provider Instructions: Mr. Pardo is a 49 yo M with a PMHx of alcohol use disorder and bipolar disorder who was admitted for alcohol withdrawal management and rehabilitation placement. Alcohol Withdrawal - ETOH level 174 on admission; Last alcoholic drink was 4 hours prior to arrival to ED; approx 4pm on 08/09/20. - Initially on AWSS protocol with oral Ativan and Ativan PRN in the event of agitation, has not required use since 08/11/20 - Gabapentin reduced back to home dosing of Gabapentin 800mg TID, continue Gabapentin 800mg TID after discharge - Continue Folate and Thiamine - Thiamine level drawn, pending, will call patient once results return in roughly 1-2 weeks. - Patient stable for discharge to [facility] for alcohol rehab. History of Psychiatric disorder, ?Bipolar Disorder - Unclear past medical history, patient appears to lose time, no memory of events while unwell mentally - Patient noting that he has seen a psychiatrist in [place] once, though no formal diagnosis. - Psych consulted, recommending alcohol rehab prior to reevaluation. - Recommend patient continue to follow up with his outpatient psychiatrist upon discharge from alcohol rehab facility. Penile Discharge - Patient with lost time after discharge from [facility] to a homeless half-way in [place] rather than home with his , not sure what happened but now with urethral discharge - UA unremarkable - elevated WBC at 13 but returned to WNL - GC Chlamydia still negative - HIV negative Epigastric Pain - sounds to be GERD/PUD 2/2 EToh abuse - protonix 40mg PO BID Pulmonary nodule - 1.9 cm nodular opacity noted on CXR, CTA Chest; advised follow up CT in a 6 months Insomnia -Continue Melatonin 6mg QHS -Continue home Trazodone 150mg qhs Code Status: Full Code Dispo: Discharge to [facility] at Noon on 08/15/20 Pending Studies at Discharge: Yes Stand-Alone Forms: [facility] Skilled Items Patient informed of condition?: Yes DNR: No Discharge Level of Care: Other Communicable Disease: No Discharge Prognosis: Stable Lines: None Urinary Catheter: No Medications and DC Order Prescriptions: New pantoprazole 40 mg Tablet,Delayed Release (Dr/Ec) 40 mg PO QAM 30 Days Qty: 30 RF: 2 melatonin 3 mg Tablet 6 mg PO HS 30 Days Qty: 60 RF: 2 thiamine HCl (vitamin B1) [Vitamin B-1] 100 mg Tablet 100 mg PO QAM 30 Days Qty: 30 RF: 2 folic acid 1 mg Tablet 1 mg PO QAM 30 Days Qty: 30 RF: 3 Continued trazodone 50 mg Tablet 150 mg PO HS RF: 0 gabapentin 800 mg Tablet 800 mg PO TID RF: 0 cholecalciferol (vitamin D3) [Vitamin D3] 25 mcg (1,000 unit) Capsule 25 mcg PO DAILY RF: 0 zinc sulfate 220 (50) mg Capsule 220 mg PO DAILY RF: 0 Discontinued melatonin 5 mg Tablet 15 mg PO HS RF: 0 Discharge Orders: Discharge Order (Routine); Ordered 08/15/20 Ordered By: Сергей Foley Admission Data Admit Date/Time: 08/10/20 00:36 Attending Provider: Geovanny Blanc Admit Provider: Valery Fontenot Primary Care Provider: PCP,NO Other Providers: Dugra Mello ; Anabel Alvarado ; Wilma Back ; Alvaro Bernstein Other Interventions: Discharge Summary Assessment (RN) Last Done: 08/15/20 11:10 Supervising Physician Co-Signing Physician Notes I personally examined the patient and verified all hayes points of history and exam, discussed case, and agree with decision making with Dr Foley. no new complaints. on video chat. she notes she would prefer he goes to dual dx facility but understands that is not entirely under our control vitals noted nad heent nc at mmm breathing unlabored no accessory muscles good effort no focal neuro deficits bipolar, etoh abuse -stable for rehab - available today -ongoing psych care as outpt otherwise as above Resident Activity Tracking Resident Involvement: Resident Care Provided Care Provided: Adult Hospital Medicine
[2020-08-15 15:20] VITALS: BP 131/91; PULSE 96; O2SAT 95
--- NOTE | 2020-08-15 15:51 | Billing Data ---
Date of Service August 15, 2020 Coding Level of Care Code D/C Day Management <30 mins
== END 2020-08-15 15:36 | disposition alcohol treatment (31) | DRG 897 ==
LOC: ED 20:52 → 2N 08-10 00:36 → SUATTDRO 08-10 00:36 → 2N 08-10 04:00
DX: F31.9 Bipolar disorder, unspecified; R00.0 Tachycardia, unspecified; E87.6 Hypokalemia; R07.81 Pleurodynia; G47.00 Insomnia, unspecified; D72.829 Elevated white blood cell count, unspecified; F10.239 Alcohol dependence with withdrawal, unspecified; R91.1 Solitary pulmonary nodule; F17.220 Nicotine dependence, chewing tobacco, uncomplicated; R36.9 Urethral discharge, unspecified; K21.9 Gastro-esophageal reflux disease without esophagitis

== ENCOUNTER 2022-05-19 01:18 | Inpatient (IN) ==
[2022-05-19 01:01] LABS: Basophils # (auto) 0.07 K/uL (0-0.2); Basophils % (auto) 0.7 %; Eosinophils # (auto) 0.09 K/uL (0-0.50); Eosinophils % (auto) 0.9 %; Hematocrit (blood only) 40.8 % (40.1-51.0); Hemoglobin 14.6 g/dl (14.0-18.0); Immature Granulocytes # (auto) 0.06 K/uL (0.00-0.02); Immature Granulocytes % (auto) 0.6 %; Lymphocytes % (auto) 27.1 %; Mean Corpuscular Hemoglobin 31.7 pg (25.0-34.0); Mean Corpuscular Hgb Conc 35.8 g/dL (32.0-36.0); Mean Corpuscular Volume 88.5 fL (80.0-100.0); Mean Platelet Volume 9.4 fL (9.4-12.4); Monocytes # (auto) 0.92 K/uL (0.24-0.82); Monocytes % (auto) 9.2 %; Neutrophils # (auto) 6.12 K/uL (1.4-6.5); Neutrophils % (auto) 61.5 %; Platelet Count 313 K/uL (130-400); RDW Coefficient of Variation 12.2 % (11.5-14.5); RDW Standard Deviation 39.2 fL (36.4-46.3); Red Blood Count 4.61 M/uL (4.63-6.08); White Blood Count 9.96 K/ul (4.8-10.8)
--- NOTE | 2022-05-19 01:02 | Emergency Department Note ---
History of Present Illness General Chief complaint: Detox Request Stated complaint: ALCOHOL DETOX, Time Seen by Provider: 05/19/22 01:30 EDT History of Present Illness Maximum Pain Intensity: 10 This 51-year-old alcoholic presents to the ER complaining of requesting detox Location: Generalized Quality: Alcoholic Severity: Moderate Duration: Ongoing Timing: Ongoing Context: Patient requested detox and came in Modifying factors: better with alcohol; worse with not drinking Patient states he drinks daily. Has history of alcohol withdrawal seizures. He is requesting detox. He states his abdomen is bothering him. Patient denies chest pain, dyspnea, drug use. No fever or chills. He drank just before coming here. Home Medications Medication Instructions Recorded Confirmed Type gabapentin 800 mg tablet 800 mg PO TID 08/09/20 05/19/22 History trazodone 50 mg tablet 150 mg PO HS 08/09/20 05/19/22 History loperamide 2 mg tablet (Imodium 2 mg PO Q6H 05/19/22 05/19/22 History A-D) zolpidem 10 mg tablet 10 mg PO HS 05/19/22 05/19/22 History Allergies Allergy/AdvReac Type Severity Reaction Status Date / Time No Known Allergies Allergy Verified 05/19/22 01:36 EST Past Med/Surg History Medical History Alcohol abuse Bipolar disorder Surgical History No pertinent past surgical history Family History Other No pertinent family history Social History Smoking Status: Never smoker Tobacco Type: Smokeless Tobacco (Dip or Chew) Hx Alcohol Use: Yes Alcohol type: hard liquor Preferred Language: Vietnamese Communication Ability: Effective 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: No marital status: Current Living Situation: Spouse Feels Safe at Home: Yes Assistive Devices: Glasses Review of Systems A total of 10 systems reviewed and were otherwise negative Physical Exam Vital Signs Vital Signs - 24 hr 05/19/22 01:24 EDT 05/19/22 01:56 EDT 05/19/22 02:00 Temperature 36.4 C L Temperature Source Temporal Artery Scan Pulse Rate 121 H 109 H Pulse Rate from SpO2 Sensor 109 H Respiratory Rate 16 23 Blood Pressure 120/83 121/82 Blood Pressure Mean 95 95 Pulse Oximetry 95 93 94 Oxygen Delivery Method Room Air Room Air Room Air Sepsis Recent Fever Within 48 Hours No Sepsis New/Unexplained Change in Mental Status No Sepsis Action Taken by Nursing No Action Required 05/19/22 02:30 05/19/22 03:00 Temperature Temperature Source Pulse Rate 98 H 93 H Pulse Rate from SpO2 Sensor 97 H 94 H Respiratory Rate 19 19 Blood Pressure 118/79 114/80 Blood Pressure Mean 92 91 Pulse Oximetry 93 93 Oxygen Delivery Method Room Air Room Air Sepsis Recent Fever Within 48 Hours Sepsis New/Unexplained Change in Mental Status Sepsis Action Taken by Nursing VITALS: Vitals are noted on the nurse's note and reviewed by myself. Vital signs reviewed. GENERAL: White male, in no acute distress, nondiaphoretic, well-developed well- nourished. SKIN: The skin was without rashes, erythema, edema, or bruising. There is no tenting of the skin. Capillary reflex less than 2 seconds. HEAD: Normocephalic atraumatic. EARS: External auditory canals clear, EYES: Pupils equal round and reactive to light and accommodation. Conjunctivae without injection, sclerae without icterus. Extraocular movements intact. NOSE: Patent, turbinates without inflammation or discharge. MOUTH: Mucous membranes moist. Pharynx without erythema or exudate. Uvula m idline. Airway patent. Tongue does not deviate. NECK: Supple without nuchal rigidity. No lymphadenopathy. No thyromegaly. Cervical spine is nontender. No JVD. HEART: Regular rate and rhythm LUNGS: Clear to auscultation bilaterally without wheezes, rales or rhonchi. No retractions or accessory muscle use. ABDOMEN: Positive bowel sounds x 4. Normal tympanic percussion. Soft, protuberant, mild diffuse tenderness, without masses or organomegaly. Car sign negative. No guarding or rebound tenderness. No CVA tenderness MUSCULOSKELETAL: No muscle atrophy, erythema, or edema noted. NEURO: Patient was alert and oriented to person place and time. Normal sensation to light and sharp touch. No focal neurological deficits. Course Administered Medications Discontinued Medications Chlordiazepoxide HCl (Chlordiazepoxide Hcl 25 Mg Cap) 50 mg PO NOW ONE Stop: 05/19/22 02:58 Last Admin: 05/19/22 03:03 Dose: 50 mg Documented By: IGLESIA Sodium Chloride (Nss 1000ml) 1,000 mls @ 999 mls/hr IV .Q1H1M SERGIO Stop: 05/19/22 02:30 Last Infusion: 05/19/22 02:18 Dose: 0 mls/hr Documented By: Admin: 05/19/22 01:12 EST Dose: 999 mls/hr Documented By: IGLESIA Ioversol (Optiray 350 100ml) 87 ml IV ONCE ONE Stop: 05/19/22 01:52 EST Last Admin: 05/19/22 01:46 EST Dose: 87 ml Documented By: WIN Lorazepam (Lorazepam 1 Mg/1 Ml Syr) 1 mg IV NOW STA; Protocol Stop: 05/19/22 01:37 EST Last Admin: 05/19/22 01:10 EST Dose: 1 mg Documented By: IGLESIA Lorazepam (Lorazepam 1 Mg/1 Ml Syr) 1 mg IV NOW STA; Protocol Stop: 05/19/22 02:58 Last Admin: 05/19/22 03:03 Dose: 1 mg Documented By: IGLESIA Medical Decision Making Medical Records Attestation: I reviewed the patient's medical records. Home Medications Current Medication List: was personally reviewed by me Laboratory Data Attestation: I reviewed the patient's lab results. Result diagrams: 05/19/22 01:42 EST 05/19/22 01:42 EST Lab Results 05/19/22 05/19/22 05/19/22 Range/Units 01:42 EST 01:42 EST 01:42 EST WBC (4.8-10.8) K/ul RBC (4.63-6.08) M/uL Hgb (14.0-18.0) g/dl Hct (40.1-51.0) % MCV (80.0-100.0) fL MCH (25.0-34.0) pg MCHC (32.0-36.0) g/dL RDW Std Deviation (36.4-46.3) fL RDW Coeff of Lala (11.5-14.5) % Plt Count (130-400) K/uL MPV (9.4-12.4) fL Immature Gran % (Auto) % Neut % (Auto) % Lymph % (Auto) % [place] % (Auto) % Eos % (Auto) % Baso % (Auto) % Neut # (Auto) (1.4-6.5) K/uL Lymph # (Auto) (1.2-3.4) K/uL [place] # (Auto) (0.24-0.82) K/uL Eos # (Auto) (0-0.50) K/uL Baso # (Auto) (0-0.2) K/uL Immature Gran # (Auto) (0.00-0.02) K/uL Sodium 133 L (136-145) mmol/L Potassium 3.1 L (3.5-5.1) mmol/L Chloride 97 L (98-107) mmol/L Carbon Dioxide 26 (21-32) mmol/L Anion Gap 10 (3-11) BUN 7 (6-23) mg/dl Creatinine 0.80 (0.6-1.4) mg/dl Est Cr Clr Drug Dosing 125.7 ml/min Est GFR ( Amer) 120.7 ml/min Est GFR (Non-Af Amer) 104.2 ml/min BUN/Creatinine Ratio 8.8 L (10-20) Glucose 264 H (70-99(Fasting)) mg/dl Calcium 8.3 L (8.5-10.1) mg/dl Magnesium 1.4 L (1.7-2.4) mg/dl Total Bilirubin 0.7 (0.2-1.0) mg/dl AST 35 (13-39) U/L ALT 31 (7-52) U/L Alkaline Phosphatase 117 H (34-104) U/L Total Protein 6.8 (6.0-8.3) gm/dl Albumin 3.8 (3.4-5.0) gm/dl Globulin 3.0 (2.5-4.0) gm/dl Albumin/Globulin Ratio 1.3 (0.9-2) Urine Color Urine Appearance Urine pH Ur Specific [place] Urine Protein Urine Glucose (UA) Urine Ketones Urine Blood Urine Nitrite Urine Bilirubin Urine Urobilinogen Ur Leukocyte Esterase Urine WBC (Auto) Urine RBC (Auto) U Hyaline Cast (Auto) U Epithel Cells (Auto) Urine Bacteria (Auto) Ur Renal Epithelial Cell Urine Crystals Calcium Oxalate Crystal Uric Acid Crystals Triple Phos Crystals Other Crystals Amorphous Sediment Granular Casts Waxy Casts RBC Casts WBC Casts Other Casts Urine Mucus Urine Other Urine Trichomonas Urine Yeast Urine Sperm Ur Oval Fat Bodies Salicylates < 3.0 L (3.0-30) mg/dl Urine Opiates Screen (Neg) Ur Methadone, Qual (Neg) Acetaminophen < 3 L (10-30) ug/ml Urine Barbiturates (Neg) Ur Phencyclidine (PCP) (Neg) U Amphetamin/Meth Scrn (Neg) MDMA (Ecstasy) Screen (Neg) U Benzodiazepines Scrn (Neg) Ur Cocaine Metabolite (Neg) U Marijuana (THC) Screen (Neg) Ethyl Alcohol mg/dL 127.4 H (<10.0) mg/dl SARS-CoV-2, RNA, NAAT (NEGATIVE) 05/19/22 05/19/22 05/19/22 Range/Units 01:42 EST 01:42 EST 01:42 EST WBC 9.96 (4.8-10.8) K/ul RBC 4.61 L (4.63-6.08) M/uL Hgb 14.6 (14.0-18.0) g/dl Hct 40.8 (40.1-51.0) % MCV 88.5 (80.0-100.0) fL MCH 31.7 (25.0-34.0) pg MCHC 35.8 (32.0-36.0) g/dL RDW Std Deviation 39.2 (36.4-46.3) fL RDW Coeff of Lala 12.2 (11.5-14.5) % Plt Count 313 (130-400) K/uL MPV 9.4 (9.4-12.4) fL Immature Gran % (Auto) 0.6 % Neut % (Auto) 61.5 % Lymph % (Auto) 27.1 % [place] % (Auto) 9.2 % Eos % (Auto) 0.9 % Baso % (Auto) 0.7 % Neut # (Auto) 6.12 (1.4-6.5) K/uL Lymph # (Auto) 2.70 (1.2-3.4) K/uL [place] # (Auto) 0.92 H (0.24-0.82) K/uL Eos # (Auto) 0.09 (0-0.50) K/uL Baso # (Auto) 0.07 (0-0.2) K/uL Immature Gran # (Auto) 0.06 H (0.00-0.02) K/uL Sodium (136-145) mmol/L Potassium (3.5-5.1) mmol/L Chloride (98-107) mmol/L Carbon Dioxide (21-32) mmol/L Anion Gap (3-11) BUN (6-23) mg/dl Creatinine (0.6-1.4) mg/dl Est Cr Clr Drug Dosing ml/min Est GFR ( Amer) ml/min Est GFR (Non-Af Amer) ml/min BUN/Creatinine Ratio (10-20) Glucose (70-99(Fasting)) mg/dl Calcium (8.5-10.1) mg/dl Magnesium (1.7-2.4) mg/dl Total Bilirubin (0.2-1.0) mg/dl AST (13-39) U/L ALT (7-52) U/L Alkaline Phosphatase (34-104) U/L Total Protein (6.0-8.3) gm/dl Albumin (3.4-5.0) gm/dl Globulin (2.5-4.0) gm/dl Albumin/Globulin Ratio (0.9-2) Urine Color Cancelled Yellow Urine Appearance Cancelled Clear Urine pH Cancelled 6.5 Ur Specific [place] Cancelled 1.028 Urine Protein Cancelled Trace H Urine Glucose (UA) Cancelled 2+ H Urine Ketones Cancelled Trace H Urine Blood Cancelled Negative Urine Nitrite Cancelled Negative Urine Bilirubin Cancelled Negative Urine Urobilinogen Cancelled Negative Ur Leukocyte Esterase Cancelled Negative Urine WBC (Auto) Cancelled 1-5 Urine RBC (Auto) Cancelled 0-4 U Hyaline Cast (Auto) Cancelled 0 U Epithel Cells (Auto) Cancelled 5-10 H Urine Bacteria (Auto) Cancelled Negative Ur Renal Epithelial Cell Cancelled Urine Crystals Cancelled Calcium Oxalate Crystal Cancelled Uric Acid Crystals Cancelled Triple Phos Crystals Cancelled Other Crystals Cancelled Amorphous Sediment Cancelled Granular Casts Cancelled Waxy Casts Cancelled RBC Casts Cancelled WBC Casts Cancelled Other Casts Cancelled Urine Mucus Cancelled Urine Other Cancelled Urine Trichomonas Cancelled Urine Yeast Cancelled Urine Sperm Cancelled Ur Oval Fat Bodies Cancelled Salicylates (3.0-30) mg/dl Urine Opiates Screen (Neg) Ur Methadone, Qual (Neg) Acetaminophen (10-30) ug/ml Urine Barbiturates (Neg) Ur Phencyclidine (PCP) (Neg) U Amphetamin/Meth Scrn (Neg) MDMA (Ecstasy) Screen (Neg) U Benzodiazepines Scrn (Neg) Ur Cocaine Metabolite (Neg) U Marijuana (THC) Screen (Neg) Ethyl Alcohol mg/dL (<10.0) mg/dl SARS-CoV-2, RNA, NAAT (NEGATIVE) 05/19/22 05/19/22 Range/Units 01:42 EST 02:56 WBC (4.8-10.8) K/ul RBC (4.63-6.08) M/uL Hgb (14.0-18.0) g/dl Hct (40.1-51.0) % MCV (80.0-100.0) fL MCH (25.0-34.0) pg MCHC (32.0-36.0) g/dL RDW Std Deviation (36.4-46.3) fL RDW Coeff of Lala (11.5-14.5) % Plt Count (130-400) K/uL MPV (9.4-12.4) fL Immature Gran % (Auto) % Neut % (Auto) % Lymph % (Auto) % [place] % (Auto) % Eos % (Auto) % Baso % (Auto) % Neut # (Auto) (1.4-6.5) K/uL Lymph # (Auto) (1.2-3.4) K/uL [place] # (Auto) (0.24-0.82) K/uL Eos # (Auto) (0-0.50) K/uL Baso # (Auto) (0-0.2) K/uL Immature Gran # (Auto) (0.00-0.02) K/uL Sodium (136-145) mmol/L Potassium (3.5-5.1) mmol/L Chloride (98-107) mmol/L Carbon Dioxide (21-32) mmol/L Anion Gap (3-11) BUN (6-23) mg/dl Creatinine (0.6-1.4) mg/dl Est Cr Clr Drug Dosing ml/min Est GFR ( Amer) ml/min Est GFR (Non-Af Amer) ml/min BUN/Creatinine Ratio (10-20) Glucose (70-99(Fasting)) mg/dl Calcium (8.5-10.1) mg/dl Magnesium (1.7-2.4) mg/dl Total Bilirubin (0.2-1.0) mg/dl AST (13-39) U/L ALT (7-52) U/L Alkaline Phosphatase (34-104) U/L Total Protein (6.0-8.3) gm/dl Albumin (3.4-5.0) gm/dl Globulin (2.5-4.0) gm/dl Albumin/Globulin Ratio (0.9-2) Urine Color Urine Appearance Urine pH Ur Specific [place] Urine Protein Urine Glucose (UA) Urine Ketones Urine Blood Urine Nitrite Urine Bilirubin Urine Urobilinogen Ur Leukocyte Esterase Urine WBC (Auto) Urine RBC (Auto) U Hyaline Cast (Auto) U Epithel Cells (Auto) Urine Bacteria (Auto) Ur Renal Epithelial Cell Urine Crystals Calcium Oxalate Crystal Uric Acid Crystals Triple Phos Crystals Other Crystals Amorphous Sediment Granular Casts Waxy Casts RBC Casts WBC Casts Other Casts Urine Mucus Urine Other Urine Trichomonas Urine Yeast Urine Sperm Ur Oval Fat Bodies Salicylates (3.0-30) mg/dl Urine Opiates Screen Neg (Neg) Ur Methadone, Qual Neg (Neg) Acetaminophen (10-30) ug/ml Urine Barbiturates Neg (Neg) Ur Phencyclidine (PCP) Neg (Neg) U Amphetamin/Meth Scrn Neg (Neg) MDMA (Ecstasy) Screen Pos H (Neg) U Benzodiazepines Scrn Neg (Neg) Ur Cocaine Metabolite Neg (Neg) U Marijuana (THC) Screen Neg (Neg) Ethyl Alcohol mg/dL (<10.0) mg/dl SARS-CoV-2, RNA, NAAT NEGATIVE (NEGATIVE) Imaging Data Attestation: I personally reviewed and interpreted this imaging study as follows: MDM Narrative Prior records/ancillary studies reviewed and summarized above. Nursing notes reviewed. Additional history obtained from family. The patient's history was concerning for requesting detox from alcohol. Differential diagnosis: Etiologies such as alcoholism, metabolic, infection, hypo/hyperglycemia, electrolyte abnormalities, cardiac sources, intracerebral event, toxicologic, neurologic, as well as others were entertained. Physical examination: As above. ER treatment provided: IV Lock An order was placed for continuous cardiac monitoring. The monitor shows a rate of 60-1 50 with a sinus rhythm. IV fluids, Ativan On reassessment the patient felt better. Diagnostics interpretation by me: ECG: Ordered for weakness EKG: Normal sinus, normal intervals, no acute ST-T wave changes. Impression sinus tachycardia 107 interpreted by myself I think arrhythmia is unlikely. EKG shows normal sinus rhythm with no interval abnormalities such as QT prolongation or WPW. There are no findings to suggest Brugada syndrome. Cardiac monitoring in the emergency department reveals no tachycardic or bradycardic dysrhythmia. Hypertrophic cardiomyopathy was considered but there are no clear historical elements pointing toward this. EKG is not suggestive. The QRS voltage is not extremely large and there are no suggestive Q waves. The labs revealed no worrisome leukocytosis, hypomagnesemia Alcohol 127 Imaging studies: Patient: OXANA ALVARADO (Male) : 72 Status: ER Date: 05/19/22 01:53 Room #: History: ETOH abuse, abd pain, 87 ML OPTIRAY 350, APPENDIX PRESENT Slices:B [id number] Priors: Tech: Jenaro Mancilla @ [phone] Exams: CT ABDOMEN & PELVIS With Contrast Contrast: IV Amt: 87 ML Accession Numbers: [id number] Referring Physician: REFERRED SELF Preliminary Findings Only See Final Report For Complete Findings CT ABDOMEN & PELVIS With Contrast: No acute finding. Large amount of intra-abdominal adipose tissue and submucosal colonic fat. Scattered colonic diverticula. Otherwise normal study. Radiologist: Malcom Mazariegos MD Consultation: A consultation was placed with the hospitalist. The case was discussed and diagnostics were reviewed. The patient was evaluated in the ER for further treatment. Exam and history seem consistent with alcoholism with concerns for possible alcohol withdrawal. Patient is requesting detox. Medicine was consulted. He will be evaluated for admission. He is hydrated as above. He was started on Ativan. By the evaluation outlined above emergent etiologies such as infection, electrolyte abnormalities, cardiac sources, intracerebral event, neurologic, abnormalities blood glucose, metabolic, as well as others were deemed relatively unlikely. The pt informed about the findings as listed above. All questions were answered and pleased with the treatment. The chart was completed utilizing [employer] Speech voice recognition software. Grammatical errors, random word insertions, pronoun errors, and incomplete sentences are an occassional consequence of this system due to software limitations, ambient noise, and hardware issues. Any formal questions or concerns about the content, text, or information contained within the body of this dictation should be directly addressed to the physician multimedia production assistant for clarification. Impression & Plan Alcohol abuse, Hypomagnesemia Discharge Plan Visit Data Chief Complaint: Detox Request Stated Complaint: ALCOHOL DETOX, ED Provider: Malcom Medina ED Midlevel Provider: Es Antony Discharge Problem: Alcohol abuse, Hypomagnesemia Patient Disposition: Admitted As Inpatient Condition: Fair Forms Stand Alone Forms: [facility], Suicide Prevention Resources Prescriptions Prescriptions: No Action trazodone 50 mg Tablet 150 mg PO HS Rx Instructions: TAKE 3-4 TABS AT HS, PER PT TAKES 150 MG. gabapentin 800 mg Tablet 800 mg PO TID loperamide [Imodium A-D] 2 mg Tablet 2 mg PO Q6H zolpidem 10 mg Tablet 10 mg PO HS Referrals Referrals: PCP,NO [Primary Care Provider] -
[2022-05-19 01:21] LABS: Acetaminophen < 3 ug/ml (10-30); Albumin Globulin Ratio 1.3 (0.9-2); Albumin Level 3.8 gm/dl (3.4-5.0); BUN Creatinine Ratio 8.8 (10-20); Bilirubin,Total 0.7 mg/dl (0.2-1.0); Calcium 8.3 mg/dl (8.5-10.1); Creatinine Clr Calc Pharmacy 125.7 ml/min; Est GFR (African American) 120.7 ml/min; Est GFR (Non-African American) 104.2 ml/min; Magnesium 1.4 mg/dl (1.7-2.4); Potassium 3.1 mmol/L (3.5-5.1); Salicylate < 3.0 mg/dl (3.0-30); Total Protein 6.8 gm/dl (6.0-8.3)
[2022-05-19] MEDS ORDERED: SODIUM CHLORIDE 0.9% 1000ML 1,000 ML IV SCH (01:30)
[2022-05-19] MEDS ORDERED: LORazepam 1 MG/1 ML SYR IV STA ×2 (01:36→02:57)
[2022-05-19] MEDS ORDERED: OPTIRAY 350 100ml IV ONE (01:51)
[2022-05-19 02:11] LABS: Appearance Urine Clear (Clear); Bacteria Urine Automated Negative (Negative); Bilirubin Urine Negative (Negative); Blood Urine Negative (Negative); Cast Urine Automated 0 /lpf (0-5); Color Urine Yellow; Glucose Urine UA 2+ (Negative); Ketones Urine Trace (Negative); Leukocyte Esterase Urine Negative (Negative); Nitrite Urine Negative (Negative); Protein Urine Trace (Negative); RBC Urine Automated 0-4 /hpf (0-4); Specific Gravity Urine 1.028 (1.000-1.030); Urobilinogen Urine Negative (Negative); pH Urine 6.5 (4.5-7.5)
[2022-05-19 02:55] LABS: Amphetamines+Metham, Urine Neg (Neg); Barbiturates, Urine Neg (Neg); Benzodiazepine, Urine Neg (Neg); Cocaine, Urine Neg (Neg); MDMA (Ecstacy), Urine Pos (Neg); Methadone, Urine Neg (Neg); Opiate, Urine Neg (Neg); Phencyclidine, Urine Neg (Neg)
[2022-05-19] MEDS ORDERED: chlordiazePOXIDE HCl 25 MG CAP PO ONE (02:57)
--- NOTE | 2022-05-19 03:59 | History & Physical Report ---
Date of Service May 19, 2022 Assessment & Plan (1) Alcohol withdrawal: Plan: 51yo male with history of EtOH abuse, prior withdrawal seizures presents with request for detox. He drinks appx 30 drinks/day. Has been given Librium an Ativan x 2mg IV in the ER thus far. He is somnolent, arousable. No tremor. VSS. -Admit to PCU -Continue home Gabapentin 800mg po TID -Continue Librium taper -AWSS -Seizure precautions -Thiamine daily -Folate daily -Consider treatment with phenobarbital if benzo requirements are high given history of prior seizure (2) Electrolyte abnormality: Plan: Hypokalemia and hypmagneseia -Mg x 4 gm IV -KCl 10mEq x 4 riders + 20mEq now -Repeat chemistry in AM (3) Insomnia: Plan: Hold home Ambien and Trazodone F/E/N - LR at 125mL/hr x 2 liters, electrolyte repletion NPO for now Ppx - Low risk Code - Full Dispo - Admit to PCU History of Present Illness Chief Complaint: alcohol detox request Primary Care Provider: NO PCP Parveen Pardo is a 51yo male with history of EtoH abuse with prior withdrawal seizures, possible bipolar disorder presenting with request for EtOH detox. Patient drinks approximately 30 small shot bottles of whiskey daily. Last drink was prior to arrival in the ER tonight (05/19/22 AM). Patient is somnolent after receiving Ativan and Librium in the ER. No additional complaints at this time. is at bedside and provides some history. ER Course: Librium 50mg po , Ativan 1mg IV x 2, NSS x 1 liter Allergies Allergy/AdvReac Type Severity Reaction Status Date / Time No Known Allergies Allergy Verified 05/19/22 01:36 EST Home Medications Medication Instructions Recorded Confirmed Type gabapentin 800 mg tablet 800 mg PO TID 08/09/20 05/19/22 History trazodone 50 mg tablet 150 mg PO HS 08/09/20 05/19/22 History loperamide 2 mg tablet (Imodium 2 mg PO Q6H 05/19/22 05/19/22 History A-D) zolpidem 10 mg tablet 10 mg PO HS 05/19/22 05/19/22 History Past Med/Surg History Medical History Alcohol abuse Bipolar disorder Surgical History No pertinent past surgical history Family History Other No pertinent family history Social History Smoking Status: Never smoker Tobacco Type: Smokeless Tobacco (Dip or Chew) Hx Alcohol Use: Yes Alcohol type: hard liquor Preferred Language: Eritrean Communication Ability: Effective 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 somnolent, arousable, oriented x 3 Skin: warm, dry, intact, no rashes or lesions HEENT: NC/AT, PERRL, EOMI, anicteric sclera, conjunctiva without injection, external ear normal to inspection and nontender, nares patent, moist mucus membranes, dentition intact, no oropharyngeal lesions, neck supple, trachea midline, no LAD, no thyromegaly, no JVD Heart: +S1/S2, regular, no m/r/g Lungs: equal air entry bilaterally, no rales/rhonchi/wheezes Abd: +BS, soft, NT/ND, no masses/organomegaly/ascites Ext: warm, 2+ pulses in UE/LE bilaterally, no clubbing/cyanosis or edema Neuro: no facial droop, speech clear, moving extremities with 5/5 strength Results & Data Results & Data ([facility]) Vital Signs (Past 12 Hours) Vital Signs Temp Pulse Resp BP Pulse Ox O2 Del Method 05/19/22 03:00 93 H 19 114/80 93 Room Air 05/19/22 02:30 98 H 19 118/79 93 Room Air 05/19/22 02:00 109 H 23 121/82 94 Room Air 05/19/22 01:56 EDT 93 Room Air 05/19/22 01:24 EDT 36.4 C L 121 H 16 120/83 95 Room Air Laboratory Results Laboratory Results WBC 9.96 K/ul (4.8-10.8) 05/19/22 01:42 EST RBC 4.61 M/uL (4.63-6.08) L 05/19/22 01:42 EST Hgb 14.6 g/dl (14.0-18.0) 05/19/22 01:42 EST Hct 40.8 % (40.1-51.0) 05/19/22 01:42 EST MCV 88.5 fL (80.0-100.0) 05/19/22 01:42 EST MCH 31.7 pg (25.0-34.0) 05/19/22 01:42 EST MCHC 35.8 g/dL (32.0-36.0) 05/19/22 01:42 EST RDW Std Deviation 39.2 fL (36.4-46.3) 05/19/22 01:42 EST RDW Coeff of Lala 12.2 % (11.5-14.5) 05/19/22 01:42 EST Plt Count 313 K/uL (130-400) 05/19/22 01:42 EST MPV 9.4 fL (9.4-12.4) 05/19/22 01:42 EST Immature Gran % (Auto) 0.6 % 05/19/22 01:42 EST Neut % (Auto) 61.5 % 05/19/22 01:42 EST Lymph % (Auto) 27.1 % 05/19/22 01:42 EST [place] % (Auto) 9.2 % 05/19/22 01:42 EST Eos % (Auto) 0.9 % 05/19/22 01:42 EST Baso % (Auto) 0.7 % 05/19/22 01:42 EST Neut # (Auto) 6.12 K/uL (1.4-6.5) 05/19/22 01:42 EST Lymph # (Auto) 2.70 K/uL (1.2-3.4) 05/19/22 01:42 EST [place] # (Auto) 0.92 K/uL (0.24-0.82) H 05/19/22 01:42 EST Eos # (Auto) 0.09 K/uL (0-0.50) 05/19/22 01:42 EST Baso # (Auto) 0.07 K/uL (0-0.2) 05/19/22 01:42 EST Immature Gran # (Auto) 0.06 K/uL (0.00-0.02) H 05/19/22 01:42 EST Sodium 133 mmol/L (136-145) L 05/19/22 01:42 EST Potassium 3.1 mmol/L (3.5-5.1) L 05/19/22 01:42 EST Chloride 97 mmol/L (98-107) L 05/19/22 01:42 EST Carbon Dioxide 26 mmol/L (21-32) 05/19/22 01:42 EST Anion Gap 10 (3-11) 05/19/22 01:42 EST BUN 7 mg/dl (6-23) 05/19/22 01:42 EST Creatinine 0.80 mg/dl (0.6-1.4) 05/19/22 01:42 EST Est Cr Clr Drug Dosing 125.7 ml/min 05/19/22 01:42 EST Est GFR ( Amer) 120.7 ml/min 05/19/22 01:42 EST Est GFR (Non-Af Amer) 104.2 ml/min 05/19/22 01:42 EST BUN/Creatinine Ratio 8.8 (10-20) L 05/19/22 01:42 EST Glucose 264 mg/dl (70-99(Fasting)) H 05/19/22 01:42 EST Calcium 8.3 mg/dl (8.5-10.1) L 05/19/22 01:42 EST Magnesium 1.4 mg/dl (1.7-2.4) L 05/19/22 01:42 EST Total Bilirubin 0.7 mg/dl (0.2-1.0) 05/19/22 01:42 EST AST 35 U/L (13-39) 05/19/22 01:42 EST ALT 31 U/L (7-52) 05/19/22 01:42 EST Alkaline Phosphatase 117 U/L (34-104) H 05/19/22 01:42 EST Total Protein 6.8 gm/dl (6.0-8.3) 05/19/22 01:42 EST Albumin 3.8 gm/dl (3.4-5.0) 05/19/22 01:42 EST Globulin 3.0 gm/dl (2.5-4.0) 05/19/22 01:42 EST Albumin/Globulin Ratio 1.3 (0.9-2) 05/19/22 01:42 EST Urine Color Cancelled 05/19/22 01:42 EST Urine Color Yellow 05/19/22 01:42 EST Urine Appearance Cancelled 05/19/22 01:42 EST Urine Appearance Clear (Clear) 05/19/22 01:42 EST Urine pH 6.5 (4.5-7.5) 05/19/22 01:42 EST Urine pH Cancelled 05/19/22 01:42 EST Ur Specific [place] 1.028 (1.000-1.030) 05/19/22 01:42 EST Ur Specific [place] Cancelled 05/19/22 01:42 EST Urine Protein Cancelled 05/19/22 01:42 EST Urine Protein Trace (Negative) H 05/19/22 01:42 EST Urine Glucose (UA) 2+ (Negative) H 05/19/22 01:42 EST Urine Glucose (UA) Cancelled 05/19/22 01:42 EST Urine Ketones Cancelled 05/19/22 01:42 EST Urine Ketones Trace (Negative) H 05/19/22 01:42 EST Urine Blood Cancelled 05/19/22 01:42 EST Urine Blood Negative (Negative) 05/19/22 01:42 EST Urine Nitrite Cancelled 05/19/22 01:42 EST Urine Nitrite Negative (Negative) 05/19/22 01:42 EST Urine Bilirubin Cancelled 05/19/22 01:42 EST Urine Bilirubin Negative (Negative) 05/19/22 01:42 EST Urine Urobilinogen Cancelled 05/19/22 01:42 EST Urine Urobilinogen Negative (Negative) 05/19/22 01:42 EST Ur Leukocyte Esterase Cancelled 05/19/22 01:42 EST Ur Leukocyte Esterase Negative (Negative) 05/19/22 01:42 EST Urine WBC (Auto) 1-5 /hpf (0-5) 05/19/22 01:42 EST Urine WBC (Auto) Cancelled 05/19/22 01:42 EST Urine RBC (Auto) 0-4 /hpf (0-4) 05/19/22 01:42 EST Urine RBC (Auto) Cancelled 05/19/22 01:42 EST U Hyaline Cast (Auto) 0 /lpf (0-5) 05/19/22 01:42 EST U Hyaline Cast (Auto) Cancelled 05/19/22 01:42 EST U Epithel Cells (Auto) 5-10 /lpf (0-5) H 05/19/22 01:42 EST U Epithel Cells (Auto) Cancelled 05/19/22 01:42 EST Urine Bacteria (Auto) Cancelled 05/19/22 01:42 EST Urine Bacteria (Auto) Negative (Negative) 05/19/22 01:42 EST Ur Renal Epithelial Cell Cancelled 05/19/22 01:42 EST Urine Crystals Cancelled 05/19/22 01:42 EST Calcium Oxalate Crystal Cancelled 05/19/22 01:42 EST Uric Acid Crystals Cancelled 05/19/22 01:42 EST Triple Phos Crystals Cancelled 05/19/22 01:42 EST Other Crystals Cancelled 05/19/22 01:42 EST Amorphous Sediment Cancelled 05/19/22 01:42 EST Granular Casts Cancelled 05/19/22 01:42 EST Waxy Casts Cancelled 05/19/22 01:42 EST RBC Casts Cancelled 05/19/22 01:42 EST WBC Casts Cancelled 05/19/22 01:42 EST Other Casts Cancelled 05/19/22 01:42 EST Urine Mucus Cancelled 05/19/22 01:42 EST Urine Other Cancelled 05/19/22 01:42 EST Urine Trichomonas Cancelled 05/19/22 01:42 EST Urine Yeast Cancelled 05/19/22 01:42 EST Urine Sperm Cancelled 05/19/22 01:42 EST Ur Oval Fat Bodies Cancelled 05/19/22 01:42 EST Salicylates < 3.0 mg/dl (3.0-30) L 05/19/22 01:42 EST Urine Opiates Screen Neg (Neg) 05/19/22 01:42 EST Ur Methadone, Qual Neg (Neg) 05/19/22 01:42 EST Acetaminophen < 3 ug/ml (10-30) L 05/19/22 01:42 EST Urine Barbiturates Neg (Neg) 05/19/22 01:42 EST Ur Phencyclidine (PCP) Neg (Neg) 05/19/22 01:42 EST U Amphetamin/Meth Scrn Neg (Neg) 05/19/22 01:42 EST MDMA (Ecstasy) Screen Pos (Neg) H 05/19/22 01:42 EST U Benzodiazepines Scrn Neg (Neg) 05/19/22 01:42 EST Ur Cocaine Metabolite Neg (Neg) 05/19/22 01:42 EST U Marijuana (THC) Screen Neg (Neg) 05/19/22 01:42 EST Ethyl Alcohol mg/dL 127.4 mg/dl (<10.0) H 05/19/22 01:42 EST SARS-CoV-2, RNA, NAAT NEGATIVE (NEGATIVE) 05/19/22 02:[address] of the Abomen and Pelvis obtained for abdominal pain - results PENDING PG Care Time/CCT Total # of Minutes Spent Total Time Spent with Patient: Total time spent is greater than 50% in coordination of care (as documented) at patient's floor/unit and/or counseling patient: Coding Level of Care Code 70411 Initial Inpt Care Lvl 2 Diagnoses Alcohol withdrawal F10.239 Electrolyte abnormality E87.8 Insomnia G47.00
[2022-05-19] MEDS: MAGNESIUM SULFATE / D5W 1 GM/100 ML BAG IV SCH ×6 (04:31→13:02)
[2022-05-19] MEDS ORDERED: chlordiazePOXIDE ALCOHOL WITHDRAWL 50MG PO STA (04:59)
[2022-05-19] MEDS ORDERED: LORazepam 2 MG in SYRINGE 0 ML IV PRN (04:59)
[2022-05-19] MEDS ORDERED: LORazepam 3 MG in SYRINGE 0 ML IV PRN (04:59)
[2022-05-19] MEDS ORDERED: Ativan IV Alcohol Withdrawal--Active Protocol IV PRN (04:59)
[2022-05-19] MEDS ORDERED: ONDANSETRON INJ 2 MG/ML 2 ML VIAL IV PRN (04:59)
[2022-05-19] MEDS ORDERED: POTASSIUM CHLORIDE CRTAB 20 MEQ TABCR PO STA (04:59)
[2022-05-19] MEDS ORDERED: LORazepam 1 MG in SYRINGE 0 ML IV PRN (04:59)
[2022-05-19] MEDS ORDERED: LACTATED RINGER'S 1,000 ML IV SCH (04:59)
[2022-05-19] MEDS: POTASSIUM CHLORIDE / WTR 10 MEQ/100 ML PLCT IV SCH ×4 (05:51→08:54)
[2022-05-19] MEDS: LOPERAMIDE HCL 2 MG CAP PO SCH ×3 (05:54→17:56)
[2022-05-19] MEDS: THIAMINE HCL 100 MG in SYRINGE 9 ML IV SCH (08:53)
[2022-05-19] MEDS: FOLIC ACID 1 MG in SYRINGE 9.8 ML IV SCH (08:53)
--- NOTE | 2022-05-19 09:12 | CT Scan Report ---
CT OF THE ABDOMEN AND PELVIS WITH CONTRAST CLINICAL HISTORY: ETOH abuse, abdominal pain COMPARISON STUDY: None. TECHNIQUE: Following IV administration of 8 7 mL of Optiray, axial images of the abdomen and pelvis w ere obtained from the lung bases to the proximal femurs. Images were reviewed in the axial, sagittal, and coronal planes. IV contrast was administered without complication. Automated exposure control w as utilized for the study. A dose lowering technique was utilized adhering to the principles of MIRNA Green. CT DOSE: 1090.23 mGy.cm FINDINGS: Lung bases are unremarkable. No pneumatosis, free air or portal venous gas is present. Ther e is hepatic steatosis. A 1.5 cm subcapsular segment 6 hepatic lesion on axial image 146 of [address] is si [address] to CT of August 09, 2020. There is no biliary or pancreatic ductal dilatation. Spleen, adrenal glands, kidneys and pancreas are unremarkable. There is no peripancreatic or pericholecystic strandi ng. There is no evidence for a bowel obstruction. Colonic diverticulosis is noted without evidence fo r acute diver tic colitis. The appendix is normal. Submucosal fat deposition within the colon is not acute. There is no hydronephrosis. There is no lymphadenopathy. Major vasculature is patent. IMPRESSION: 1. No acute process within the abdomen or pelvis. 2. Hepatic steatosis. 1.5 cm segment 6 hepatic lesion which is indeterminate but similar to CT of [place] 2020. This is probably benign. 3. No bowel obstruction. No bowel wall thickening. Normal appendix. 4. Colonic diverticulosis without evidence for acute diverticulitis. ACT 112: Negative or not required by law. Electronically signed by: Bharath Devi M.D. 05/19/2022 9:10 AM
[2022-05-19] MEDS: GABAPENTIN 800 MG TAB PO SCH ×3 (09:58→21:16)
[2022-05-19] MEDS: chlordiazePOXIDE HCl 25 MG CAP PO SCH ×3 (10:00→21:16)
--- NOTE | 2022-05-19 14:00 | Electrocardiogram Report ---
Test Reason : Blood Pressure : / mmHG Vent. Rate : 107 BPM Atrial Rate : 107 BPM P-R Int : 120 ms QRS Dur : 086 ms QT Int : 338 ms P-R-T Axes : 041 -08 042 degrees QTc Int : 451 ms Sinus tachycardia RSR' or QR pattern in V1 suggests right ventricular conduction delay When compared with ECG of 09-AUG-2020 21:04, No significant change was found Confirmed by Mau Goff ([id number]) on 05/19/2022 2:00:25 PM Referred By: REFERRED SELF Confirmed By:Mau Goff
--- NOTE | 2022-05-19 17:57 | History & Physical Bridge Note ---
Date of Service May 19, 2022 History & Physical Bridge Note I have examined the patient, reviewed the History & Physical and in the interval since the performance of the History & Physical I have noted the following changes of clinical significance: Pt feeling much better. Has chronic loose stools, follows with [facility] and had EGD/colonoscopy recently, doesn't know results. Drinks 30 shots a day for many years. Has a h/o EtOH withdrawal seizures. Wants to go to [facility] inpatient rehab from here after detox. No N/V, no abd pain, no CP or SOB. Tele with NSR, ST Vitals reviewed NAD< AAOx3, no tremor RRR no mgr CTAB no wcr abd +BS soft mild ttp epigastric region chronic, no guarding, mildly distended Ext no edema Skin no rashes Labs reviewed CT abd/pel reviewed 51 yo male with Alcohol use disorder here for alcohol withdrawal doing well, much improved continue Librium taper, ativan prn he is nii diet so no further IVFs needed continue thiamine , folate check BMP, Mag in AM and replace lytes as needed CAse Man consult for inpatient rehab placement at [facility] Incidentally, had abnormal CHest CT last year with ?follow up? Will need to ensure has proper outpt PULM follow up if didn't already
[2022-05-20] MEDS: LOPERAMIDE HCL 2 MG CAP PO SCH ×5 (00:10→23:03)
[2022-05-20] MEDS: chlordiazePOXIDE HCl 25 MG CAP PO SCH ×3 (06:08→23:00)
[2022-05-20 06:57] LABS: Hematocrit (blood only) 38.7 % (40.1-51.0); Hemoglobin 13.3 g/dl (14.0-18.0); Mean Corpuscular Hemoglobin 31.3 pg (25.0-34.0); Mean Corpuscular Hgb Conc 34.4 g/dL (32.0-36.0); Mean Corpuscular Volume 91.1 fL (80.0-100.0); Mean Platelet Volume 9.6 fL (9.4-12.4); Platelet Count 211 K/uL (130-400); RDW Coefficient of Variation 12.4 % (11.5-14.5); RDW Standard Deviation 40.7 fL (36.4-46.3); Red Blood Count 4.25 M/uL (4.63-6.08)
[2022-05-20 07:31] LABS: Estimated Average Glucose 137 mg/dl; Hemoglobin A1C 6.4 % (4.5-5.6)
[2022-05-20 07:51] LABS: Albumin Level 3.3 gm/dl (3.4-5.0); BUN Creatinine Ratio 10.4 (10-20); Bilirubin Direct 0.2 mg/dl (0-0.2); Calcium 8.2 mg/dl (8.5-10.1); Est GFR (African American) 129.9 ml/min; Magnesium 2.2 mg/dl (1.7-2.4); Potassium 3.7 mmol/L (3.5-5.1); Total Protein 6.1 gm/dl (6.0-8.3)
[2022-05-20] MEDS: FOLIC ACID 1 MG in SYRINGE 9.8 ML IV SCH (08:50)
[2022-05-20] MEDS: GABAPENTIN 800 MG TAB PO SCH ×3 (08:51→20:41)
[2022-05-20] MEDS: THIAMINE HCL 100 MG in SYRINGE 9 ML IV SCH (08:52)
[2022-05-20] MEDS ORDERED: IBUPROFEN 600 MG TAB PO PRN (11:54)
--- NOTE | 2022-05-20 19:58 | Hospitalist Progress Note ---
Date of Service May 20, 2022 Assessment & Plan (1) Alcohol withdrawal: Plan: 51yo male with history of EtOH abuse, prior withdrawal seizures presents with request for detox. He drinks appx 30 drinks/day for decades with breaks here and there He has a h/o seizures from EtOH withdrawal Doing very well now on Librium taper, not needing any prn ativan thus far. Last drink 11/ night Only Alk phos slightly elevated, no cirrhosis on CT abd/pel but does have hepa tic steatosis and an indeterminate liver lesion unchanged from previous that is probably benign -continued stay on PCU -Continue home Gabapentin 800mg po TID -Continue Librium taper -AWSS and prn ativan -Seizure precautions -Thiamine daily -Folate daily -nii po, no IVFs further needed -check BMP, Mag in AM and replace lytes as needed Wants to go to [facility] inpatient rehab from here after detox. Light Adjuster in touch with [facility] and making arrangements-bed is available starting Wed if medically stable (2) Electrolyte abnormality: Plan: Hypokalemia and hypmagneseia on admission-replaced and now resolved follow BMP, Mag (3) Insomnia: Plan: Hold home Ambien and Trazodone while on Librium (4) Prediabetes: Plan: random glucose on arrival 264 HgbA1C in prediabetes range at 6.4% This will likely improve with cessation of alcohol He does have chronic diarrhea which may be from pancreatic insufficiency and perhaps developing DM as a result no need for insulin or glucose checks (5) Liver lesion: Plan: as above, indeterminate but likely benign follow as outpt (6) Diarrhea: Plan: Has chronic loose stools, follows with [facility] and had EGD/colonoscopy recently, doesn't know results. Requested records from [facility] With chronic upper abdominal pain, suspect pancreatic insufficiency from chronic pancreatitis? -need to review GI records but could trial pancreatic enzymes although often not covered outpt by insurance -continue Imodium for now -could also be carcinoid? Has abnormal lesion in chest on CT in 2020--> repeating chest CT (7) Pulmonary nodule: Plan: Incidentally, had abnormal Chest CT last year with no PULM follow up or repeat chest CT -check chest CT with IV contrast in the AM -if remains, will need outpt PULM f/u Plan DVT proph-add Lovenox Dispo-continued stay on PCU, discharge to [facility] rehab Fri- depending on how he's doing Admission and Anticipated Discharge Date Admission Date: May 19, 2022 Subjective Pt feeling better, is eating and drinking, still with chronic diarrhea and chronic upper abdominal pain. No other concerns. Tele with NSR and ST rates 90-100s Review of Systems Review of Systems: All systems reviewed & are unremarkable except as noted in HPI & below Physical Exam Constitutional: WD/WN, vitals as above Eyes: PERRL, conjunctivae normal, anicteric sclerae ENMT: external ear and nose normal, oropharynx normal Neck: trachea midline, no thyromegaly Respiratory: normal respiratory effort, lungs clear to auscultation Cardiovascular: RRR, no murmur, no edema Chest (Breasts): Chest: normal inspection of chest Gastrointestinal (Abdomen): Inspection/Auscultation: abdomen normal to inspection; abdomen not distended Percussion/Palpation: + abdomen tender (upper abdomen without guarding or rebound) and abdomen soft Musculoskeletal: Extremities: extremities normal to inspection; no cyanosis and no clubbing Skin: no rashes, warm and dry Neurologic: moves all extremities and awake; no focal motor deficits Psychiatric: A+Ox3, euthymic affect Lymphatic: no lymphedema Results & Data Results & Data ([facility]) Vital Signs (Past 12 Hours) Vital Signs Temp Pulse Pulse Resp BP Pulse Ox O2 Del Method 05/20/22 14:21 90 05/20/22 16:06 36.5 C 102 H 22 124/84 96 Room Air 05/20/22 11:51 37.1 C 102 H 16 139/95 96 Room Air 05/20/22 08:39 36.6 C 114 H 18 142/87 H 94 Room Air Laboratory Results 05/20/22 05/20/22 05/20/22 Range/Units 16:38 11:35 07:29 WBC (4.8-10.8) K/ul RBC (4.63-6.08) M/uL Hgb (14.0-18.0) g/dl Hct (40.1-51.0) % MCV (80.0-100.0) fL MCH (25.0-34.0) pg MCHC (32.0-36.0) g/dL RDW Std Deviation (36.4-46.3) fL RDW Coeff of Lala (11.5-14.5) % Plt Count (130-400) K/uL MPV (9.4-12.4) fL Sodium (136-145) mmol/L Potassium (3.5-5.1) mmol/L Chloride (98-107) mmol/L Carbon Dioxide (21-32) mmol/L Anion Gap (3-11) BUN (6-23) mg/dl Creatinine (0.6-1.4) mg/dl Est Cr Clr Drug Dosing ml/min Est GFR ( Amer) ml/min Est GFR (Non-Af Amer) ml/min BUN/Creatinine Ratio (10-20) Glucose (70-99(Fasting)) mg/dl POC Glucose 119 H 138 H 118 H (70-99) mg/dl Estimat Average Glucose mg/dl Hemoglobin A1c (4.5-5.6) % Calcium (8.5-10.1) mg/dl Magnesium (1.7-2.4) mg/dl Total Bilirubin (0.2-1.0) mg/dl Direct Bilirubin (0-0.2) mg/dl AST (13-39) U/L ALT (7-52) U/L Alkaline Phosphatase (34-104) U/L Total Protein (6.0-8.3) gm/dl Albumin (3.4-5.0) gm/dl 05/20/22 05/20/22 05/20/22 Range/Units 06:32 06:32 06:32 WBC 7.20 (4.8-10.8) K/ul RBC 4.25 L (4.63-6.08) M/uL Hgb 13.3 L (14.0-18.0) g/dl Hct 38.7 L (40.1-51.0) % MCV 91.1 (80.0-100.0) fL MCH 31.3 (25.0-34.0) pg MCHC 34.4 (32.0-36.0) g/dL RDW Std Deviation 40.7 (36.4-46.3) fL RDW Coeff of Lala 12.4 (11.5-14.5) % Plt Count 211 (130-400) K/uL MPV 9.6 (9.4-12.4) fL Sodium 139 (136-145) mmol/L Potassium 3.7 (3.5-5.1) mmol/L Chloride 103 (98-107) mmol/L Carbon Dioxide 31 (21-32) mmol/L Anion Gap 5 (3-11) BUN 7 (6-23) mg/dl Creatinine 0.67 (0.6-1.4) mg/dl Est Cr Clr Drug Dosing 151.0 ml/min Est GFR ( Amer) 129.9 ml/min Est GFR (Non-Af Amer) 112.0 ml/min BUN/Creatinine Ratio 10.4 (10-20) Glucose 116 H (70-99(Fasting)) mg/dl POC Glucose (70-99) mg/dl Estimat Average Glucose 137 mg/dl Hemoglobin A1c 6.4 H (4.5-5.6) % Calcium 8.2 L (8.5-10.1) mg/dl Magnesium 2.2 (1.7-2.4) mg/dl Total Bilirubin 1.0 (0.2-1.0) mg/dl Direct Bilirubin 0.2 (0-0.2) mg/dl AST 27 (13-39) U/L ALT 24 (7-52) U/L Alkaline Phosphatase 110 H (34-104) U/L Total Protein 6.1 (6.0-8.3) gm/dl Albumin 3.3 L (3.4-5.0) gm/dl 05/19/22 Range/Units 22:53 WBC (4.8-10.8) K/ul RBC (4.63-6.08) M/uL Hgb (14.0-18.0) g/dl Hct (40.1-51.0) % MCV (80.0-100.0) fL MCH (25.0-34.0) pg MCHC (32.0-36.0) g/dL RDW Std Deviation (36.4-46.3) fL RDW Coeff of Lala (11.5-14.5) % Plt Count (130-400) K/uL MPV (9.4-12.4) fL Sodium (136-145) mmol/L Potassium (3.5-5.1) mmol/L Chloride (98-107) mmol/L Carbon Dioxide (21-32) mmol/L Anion Gap (3-11) BUN (6-23) mg/dl Creatinine (0.6-1.4) mg/dl Est Cr Clr Drug Dosing ml/min Est GFR ( Amer) ml/min Est GFR (Non-Af Amer) ml/min BUN/Creatinine Ratio (10-20) Glucose (70-99(Fasting)) mg/dl POC Glucose 164 H (70-99) mg/dl Estimat Average Glucose mg/dl Hemoglobin A1c (4.5-5.6) % Calcium (8.5-10.1) mg/dl Magnesium (1.7-2.4) mg/dl Total Bilirubin (0.2-1.0) mg/dl Direct Bilirubin (0-0.2) mg/dl AST (13-39) U/L ALT (7-52) U/L Alkaline Phosphatase (34-104) U/L Total Protein (6.0-8.3) gm/dl Albumin (3.4-5.0) gm/dl PG Care Time/CCT Total # of Minutes Spent Total Time Spent with Patient: Total time spent is greater than 50% in coordination of care (as documented) at patient's floor/unit and/or counseling patient: Coding Level of Care Code 65564 Subseq Hosp Care Lvl 3 Diagnoses Alcohol withdrawal F10.239 Electrolyte abnormality E87.8 Insomnia G47.00 Prediabetes R73.03 Liver lesion K76.9 Diarrhea R19.7 Pulmonary nodule R91.1
[2022-05-21] MEDS: LOPERAMIDE HCL 2 MG CAP PO SCH ×2 (06:04→11:24)
[2022-05-21] MEDS: chlordiazePOXIDE HCl 25 MG CAP PO SCH ×3 (06:04→21:04)
[2022-05-21] MEDS ORDERED: OPTIRAY 350 100ml IV ONE (08:06)
[2022-05-21 08:27] LABS: BUN Creatinine Ratio 13.9 (10-20); Calcium 8.5 mg/dl (8.5-10.1); Est GFR (African American) 121.4 ml/min; Est GFR (Non-African American) 104.7 ml/min; Potassium 3.6 mmol/L (3.5-5.1)
[2022-05-21] MEDS ORDERED: THIAMINE HCL 200 MG in SYRINGE 9 ML IV SCH (09:00)
[2022-05-21] MEDS ORDERED: THIAMINE HCL 200 MG in SODIUM CHLORIDE 0.9% 50 ML IV SCH (09:00)
[2022-05-21] MEDS: ENOXAPARIN INJ 40 MG/0.4 ML SYR SQ SCH (09:26)
[2022-05-21] MEDS: GABAPENTIN 800 MG TAB PO SCH ×3 (09:29→21:05)
[2022-05-21] MEDS: FOLIC ACID 1 MG in SYRINGE 9.8 ML IV SCH (09:29)
[2022-05-21] MEDS: THIAMINE HCL 200 MG in SODIUM CHLORIDE 0.9% 50 ML IV SCH ×2 (09:36→21:04)
--- NOTE | 2022-05-21 11:40 | CT Scan Report ---
CT OF THE CHEST WITH IV CONTRAST CLINICAL HISTORY: f/u abnormal Chest CT RUL lesion COMPARISON STUDY: Chest CT August 09, 2020 and chest radiograph August 12, 2020. TECHNIQUE: Following IV administration of 86 mL of Optiray, helical axial images of the chest were o btained. Sagittal and coronal reconstructions were viewed as well as maximal intensity projections o n an independent 3-D workstation. Automated exposure control was utilized for the study. A dose low ering technique was utilized adhering to the principles of ALARA. CT DOSE: 478.51 mGy.cm FINDINGS: No enlarged axillary, mediastinal or hilar lymph nodes are present. The size of the heart is normal. There is no pericardial effusion. No pneumothorax or pleural effusion is noted. The previo usly described partially fluid-filled tubular structure within the right upper lobe with relative rudolph ency of the adjacent lung and scattered small airspace opacities is unchanged since CT of August 09, 2020. A few small groundglass nodular opacities within the left upper lobe measure up to 1 cm. The l argest is shown on axial image 122 of 276. These were not clearly evident on prior CT. Hepatic steato sis is incidentally noted. IMPRESSION: 1. No change in the tubular partially fluid-filled right upper lobe abnormality with associated bronc hiectasis and relative lucency of the adjacent lung since chest CT of August 09, 2020. This is sugge stive of bronchial atresia. 2. A few small nodular ground glass opacities within the left upper lobe which measure up to 1 cm. Th mary were not clearly evident on prior exam and favor a mild infectious process. Follow up chest CT in 6 months to ensure resolution is recommended. ACT 112: Negative or not required by law. Electronically signed by: Bharath Devi M.D. 05/21/2022 11:39 AM
--- NOTE | 2022-05-21 13:17 | Hospitalist Progress Note ---
Date of Service May 21, 2022 Assessment & Plan (1) Alcohol withdrawal: Plan: Last drink 05/18/22 PM. Remains on Gabapentin 800mg TID, librium taper, and ativan PRN via AWSS. Seizure precautions. Amazingly minimal symptoms of withdrawal at this time. He does have tachycardia which is likely due to such, however. Cont thiamine but increase to 200mg BID. Cont folate. Cont tele monitoring. (2) Electrolyte abnormality: Plan: Hypokalemia and hypomagnesemia on admission-replaced, resolved (3) Insomnia: Plan: Hold home Ambien and Trazodone while on Librium Resume trazodone at discharge (4) Prediabetes: Plan: HgbA1C 6.4% Will primary counselor (5) Liver lesion: Plan: 1.5 cm subcapsular lesion -- similar to CT of August 09, 2020. This is somewhat reassuring that hopefully it is a benign lesion. Recommend f/u with GI. (6) Diarrhea: Plan: This is the patient's #1 complaint today. It is disabling to him. He had recent EGD/colonoscopy without any specific etiology found. Stool BioFire in March was negative. With his history of alcoholism - pancreatic insufficiency? Other? No response to bile acid sequestrants. No response to imodium. Will consult Roro CORTEZ. Trial of creon. Repeat a stool Biofire - r/o infectious etiology. 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 If bronchial atresia is present it is typically benign but in some cases can lead to recurrent infections. Strongly consider pulmonary f/u post-discharge for this. With respect to left-sided groundglass opacities - he has NO symptoms of pulmonary infection at this time. Defer on antibiotics. (8) Alcohol abuse: Plan: as above following this medical stay he wishes to attend inpatient etoh rehab at [facility] aware (9) DVT prophylaxis: Plan: lovenox daily Admission and Anticipated Discharge Date Admission Date: May 19, 2022 Subjective tele overnight - NSR or sinus tach, low 100s patient states he has been able to eat/drink without difficulty since admission he feels minimal etoh withdrawal symptoms his main complaint is that of diarrhea of ~3 months duration has seen Roro CORTEZ at [facility] had EGD and colonoscopy - latter within the last few weeks EGD was normal he does not know the results of his colonoscopy diarrhea is "explosive" pure liquid no BRBPR or melena not necessarily associated with eating has nocturnal diarrhea multiple episodes each day has generalized stomach upset/discomfort has tried imodium without relief has tried questran without relief - felt it made him worse with respect to etoh - drinks ~30 shots of liquor daily Review of Systems Review of Systems: gen - no fevers cv - no chest pain pulm - no cough, no dyspnea, no recent illness GI - no nausea or emesis Physical Exam Physical Exam: gen - NAD, no signs of etoh withdrawal/DTs mouth - MMM neck - no JVD heart - borderline tachy, s1 s2, no murmur lungs - CTA b/l abd - mild central discomfort to palpation, no distension, BS+, no HSM ext - no edema, pulses 2+ b/l neuro - no tremors Results & Data Results & Data ([facility]) Vital Signs (Past 12 Hours) Vital Signs Temp Pulse Pulse Resp BP Pulse Ox O2 Del Method 05/21/22 11:09 36.6 C 102 H 18 144/103 H 95 Room Air 05/21/22 06:11 84 05/21/22 07:36 36.8 C 95 H 18 140/103 H 96 Room Air 05/21/22 04:11 36.3 C L 92 H 20 131/97 95 Room Air Laboratory Results Laboratory Results - last 24 hr 05/20/22 05/20/22 05/21/22 16:38 20:27 07:23 Sodium 136 Potassium 3.6 Chloride 102 Carbon Dioxide 29 Anion Gap 5 BUN 11 Creatinine 0.79 Est Cr Clr Drug Dosing 127.0 Est GFR ( Amer) 121.4 Est GFR (Non-Af Amer) 104.7 BUN/Creatinine Ratio 13.9 Glucose 122 H POC Glucose 119 H 127 H Calcium 8.5 Magnesium 2.0 05/21/22 11:32 Sodium Potassium Chloride Carbon Dioxide Anion Gap BUN Creatinine Est Cr Clr Drug Dosing Est GFR ( Amer) Est GFR (Non-Af Amer) BUN/Creatinine Ratio Glucose POC Glucose 117 H Calcium Magnesium Diagnostic Findings Chest CT 05/21/22 08:00 CT OF THE CHEST WITH IV CONTRAST CLINICAL HISTORY: f/u abnormal Chest CT RUL lesion COMPARISON STUDY: Chest CT August 09, 2020 and chest radiograph August 12, 2020. TECHNIQUE: Following IV administration of 86 mL of Optiray, helical axial images of the chest were obtained. Sagittal and coronal reconstructions were viewed as well as maximal intensity projections on an independent 3-D workstation. Automated exposure control was utilized for the study. A dose lowering technique was utilized adhering to the principles of ALARA. CT DOSE: 478.51 mGy.cm FINDINGS: No enlarged axillary, mediastinal or hilar lymph nodes are present. The size of the heart is normal. There is no pericardial effusion. No pneumothorax or pleural effusion is noted. The previously described partially fluid-filled tubular structure within the right upper lobe with relative lucency of the adjacent lung and scattered small airspace opacities is unchanged since CT of August 09, 2020. A few small groundglass nodular opacities within the left upper lobe measure up to 1 cm. The largest is shown on axial image 122 of 276. These were not clearly evident on prior CT. Hepatic steatosis is incidentally noted. IMPRESSION: 1. No change in the tubular partially fluid-filled right upper lobe abnormality with associated bronchiectasis and relative lucency of the adjacent lung since chest CT of August 09, 2020. This is suggestive of bronchial atresia. 2. A few small nodular ground glass opacities within the left upper lobe which measure up to 1 cm. These were not clearly evident on prior exam and favor a mild infectious process. Follow up chest CT in 6 months to ensure resolution is recommended. ACT 112: Negative or not required by law. Electronically signed by: Bharath Devi M.D. 05/21/2022 11:39 AM PG Care Time/CCT Total # of Minutes Spent Total Time Spent with Patient: Total time spent is greater than 50% in coordination of care (as documented) at patient's floor/unit and/or counseling patient: Coding Level of Care Code 74622 Subseq Hosp Care Lvl 3 Diagnoses Alcohol withdrawal F10.239 Electrolyte abnormality E87.8 Insomnia G47.00 Prediabetes R73.03 Liver lesion K76.9 Diarrhea R19.7 Pulmonary nodule R91.1 Alcohol abuse F10.10 DVT prophylaxis Z29.9
--- NOTE | 2022-05-21 14:42 | Consultation ---
Date of Consultation May 21, 2022 History of Present Illness Attending Physician: Андрей Curry History of Present Illness Consult for abdominal pain and diarrhea HPI: 51 yo M admit EtOH withdrawal now with 3 mos of diarrhea and abd cramping. He reports that prior to three months ago, he would have 1-2 BMs daily. For the past 3 months, he has a loose urgent BM once or twice in the morning. He also notices cramping abdominal pain, which worsens with certain positions, and is associated with sensation of need to have a BM and nausea with occasional forceful vomiting. Denies rectal bleeding, nocturnal BM. His symptoms have improved since being in the hospital. Denies NSAID use, new meds W/u has included recent cscopy and EGD, although no bx done of colon- no pathology. CT on admit unremarkable. PE: Comfortable, NAD, obese CV: RRR Resp: CTA Abd: soft Labs reviewed A/P: Diarrhea - DDX= functional diarrhea, panc insuff, SIBO, micro colitis. For now, please consider trial of Immodium 2 mg once daily; if no relief with this, can consider cholestyramine. Can consider outpt w/u - more definitive panc imaging, fecal elastase, stool studies infection, w/u for carcinoid. Please consult with questions. Allergies Allergy/AdvReac Type Severity Reaction Status Date / Time No Known Allergies Allergy Verified 05/19/22 01:36 EST Home Medications Medication Instructions Recorded Confirmed Type gabapentin 800 mg tablet 800 mg PO TID 08/09/20 05/19/22 History trazodone 50 mg tablet 150 mg PO HS 08/09/20 05/19/22 History loperamide 2 mg tablet (Imodium 2 mg PO Q6H 05/19/22 05/19/22 History A-D) zolpidem 10 mg tablet 10 mg PO HS 05/19/22 05/19/22 History Patient History Medical History (Updated 05/20/22 @ 20:08 by Joycelyn Browning MD) Alcohol abuse Bipolar disorder Diarrhea Prediabetes Pulmonary nodule Surgical History No pertinent past surgical history Family History Other No pertinent family history Social History Smoking Status: Never smoker Tobacco Type: Smokeless Tobacco (Dip or Chew) Hx Alcohol Use: Yes Alcohol type: hard liquor Hx Substance Use: No Preferred Language: Swiss Communication Ability: Effective 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
[2022-05-21] MEDS: PANCREAZE (LIPASE 10,500U) CAP PO SCH (16:42)
[2022-05-22 05:27] LABS: BUN Creatinine Ratio 9.6 (10-20); Calcium 8.6 mg/dl (8.5-10.1); Creatinine Clr Calc Pharmacy 120.8 ml/min; Est GFR (African American) 118.9 ml/min; Est GFR (Non-African American) 102.6 ml/min; Potassium 3.9 mmol/L (3.5-5.1)
[2022-05-22] MEDS: GABAPENTIN 800 MG TAB PO SCH (08:12)
[2022-05-22] MEDS: PANCREAZE (LIPASE 10,500U) CAP PO SCH ×2 (08:12→12:29)
[2022-05-22] MEDS: ENOXAPARIN INJ 40 MG/0.4 ML SYR SQ SCH (08:13)
[2022-05-22] MEDS ORDERED: IBUPROFEN 800 MG TAB PO STA (08:14)
[2022-05-22 08:46] LABS: Adenovirus F 40/41 PCR Not Detected (NotDetected); Astrovirus PCR Not Detected (NotDetected); Campylobacter PCR Not Detected (NotDetected); Cryptosporidium PCR Not Detected (NotDetected); Cyclospora cayetanensis PCR Not Detected (NotDetected); Entamoeba histolytica PCR Not Detected (NotDetected); Enteroaggregative E.coli(EAEC) Not Detected (NotDetected); Enteropathogenic E.coli (EPEC) Not Detected (NotDetected); Enterotoxigenic E.coli (ETEC) Not Detected (NotDetected); Giardia lamblia PCR Not Detected (NotDetected); Norovirus GI/GII PCR Not Detected (NotDetected); Plesiomonas shigelloides PCR Not Detected (NotDetected); Rotavirus A PCR Not Detected (NotDetected); Salmonella PCR Not Detected (NotDetected); Sapovirus PCR Not Detected (NotDetected); Shiga-like Toxin E.coli (STEC) Not Detected (NotDetected); Shigella/Enteroinvasive E.coli Not Detected (NotDetected); Vibrio cholerae PCR Not Detected (NotDetected); Vibrio species PCR Not Detected (NotDetected); Yersinia enterocolitica PCR Not Detected (NotDetected)
[2022-05-22] MEDS: FOLIC ACID 1 MG in SYRINGE 9.8 ML IV SCH (10:21)
[2022-05-22] MEDS: THIAMINE HCL 200 MG in SODIUM CHLORIDE 0.9% 50 ML IV SCH (10:22)
--- NOTE | 2022-05-22 12:51 | Discharge Summary ---
Date of Service date of admission - May 19, 2022 date of discharge - May 22, 2022 Admission HPI Per Admitting Provider Parveen Pardo is a 51yo male with history of EtoH abuse with prior withdrawal seizures, possible bipolar disorder presenting with request for EtOH detox. Owen garcia drinks approximately 30 small shot bottles of whiskey daily. Last drink was prior to arrival in the ER tonight (05/19/22 AM). Patient is somnolent after receiving Ativan and Librium in the ER. No additional complaints at this time. is at bedside and provides some history. ER Course: Librium 50mg po , Ativan 1mg IV x 2, NSS x 1 liter Principal Diagnosis 1. Mild etoh withdrawal - resolved 2. Severe, chronic diarrhea - 2nd to possible pancreatic insufficiency Discharge Exam gen - NAD, no signs of etoh withdrawal/DTs mouth - MMM neck - no JVD heart - borderline tachy, s1 s2, no murmur lungs - CTA b/l abd - mild central discomfort to palpation, no distension, BS+, no HSM ext - no edema, pulses 2+ b/l neuro - no tremors Discharge Data Allergies Allergy/AdvReac Type Severity Reaction Status Date / Time No Known Allergies Allergy Verified 05/19/22 01:36 EST Consultations [facility] Ordered Studies Abdomen/Pelvis CT 05/19/22 01:[address] OF THE ABDOMEN AND PELVIS WITH CONTRAST CLINICAL HISTORY: ETOH abuse, abdominal pain COMPARISON STUDY: None. TECHNIQUE: Following IV administration of 8 7 mL of Optiray, axial images of the abdomen and pelvis were obtained from the lung bases to the proximal femurs. Images were reviewed in the axial, sagittal, and coronal planes. IV contrast was administered without complication. Automated exposure control was utilized for the study. A dose lowering technique was utilized adhering to the principles of ALARA. CT DOSE: 1090.23 mGy.cm FINDINGS: Lung bases are unremarkable. No pneumatosis, free air or portal venous gas is present. There is hepatic steatosis. A 1.5 cm subcapsular segment 6 hepa tic lesion on axial image 146 of [address] of August 09, 2020. There is no biliary or pancreatic ductal dilatation. Spleen, adrenal glands, kidneys and pancreas are unremarkable. There is no peripancreatic or pericholecystic stranding. There is no evidence for a bowel obstruction. Colonic diverticulosis is noted without evidence for acute diver tic colitis. The appendix is normal. Submucosal fat deposition within the colon is not acute. There is no hydronephrosis. There is no lymphadenopathy. Major vasculature is patent. IMPRESSION: 1. No acute process within the abdomen or pelvis. 2. Hepatic steatosis. 1.5 cm segment 6 hepatic lesion which is indeterminate but similar to CT of August 09, 2020. This is probably benign. 3. No bowel obstruction. No bowel wall thickening. Normal appendix. 4. Colonic diverticulosis without evidence for acute diverticulitis. ACT 112: Negative or not required by law. Electronically signed by: Bharath Devi M.D. 05/19/2022 9:[address] 05/21/22 08:00 CT OF THE CHEST WITH IV CONTRAST CLINICAL HISTORY: f/u abnormal Chest CT RUL lesion COMPARISON STUDY: Chest CT August 09, 2020 and chest radiograph August 12, 2020. TECHNIQUE: Following IV administration of 86 mL of Optiray, helical axial images of the chest were obtained. Sagittal and coronal reconstructions were viewed as well as maximal intensity projections on an independent 3-D workstation. Automated exposure control was utilized for the study. A dose lowering technique was utilized adhering to the principles of ALARA. CT DOSE: 478.51 mGy.cm FINDINGS: No enlarged axillary, mediastinal or hilar lymph nodes are present. The size of the heart is normal. There is no pericardial effusion. No pneumothorax or pleural effusion is noted. The previously described partially fluid-filled tubular structure within the right upper lobe with relative lucency of the adjacent lung and scattered small airspace opacities is unchanged since CT of August 09, 2020. A few small groundglass nodular opacities within the left upper lobe measure up to 1 cm. The largest is shown on axial image 122 of 276. These were not clearly evident on prior CT. Hepatic steatosis is incidentally noted. IMPRESSION: 1. No change in the tubular partially fluid-filled right upper lobe abnormality with associated bronchiectasis and relative lucency of the adjacent lung since chest CT of August 09, 2020. This is suggestive of bronchial atresia. 2. A few small nodular ground glass opacities within the left upper lobe which measure up to 1 cm. These were not clearly evident on prior exam and favor a mild infectious process. Follow up chest CT in 6 months to ensure resolution is recommended. ACT 112: Negative or not required by law. Electronically signed by: Bharath Devi M.D. 05/21/2022 11:39 AM Hospital Course (1) Alcohol withdrawal: Last etoh drink 05/18/22 PM. Placed on telemetry and continued on his usual Gabapentin 800mg TID. Also placed on librium taper along with ativan PRN via AWSS. Patient had minimal symptoms of withdrawal during his stay. He was hemodynamically stable. He was placed on thiamine & folate supplementation. Patient expressed a desire to go to inpatient alcohol rehab post-discharge. He is transferring to [facility] at time of discharge. (2) Alcohol abuse: as above (3) Diarrhea: Other than his struggles with alcohol this was the patient's chief complaint throughout his stay. It had been disabling to him. He had recent EGD/colonoscopy without any specific etiology found at [facility] in the weeks leading up to his admission. Stool BioFire in March 2022 was negative. Repeat stool BioFire this admission was again negative. No response in the past to bile acid sequestrants. No response to imodium. He was seen by iggy CORTEZ during this stay. Trial of creon with meals was instituted. This significantly helped his diarrhea and in fact he had a normal calibre stool prior to discharge. He should follow-up with iggy CORTEZ post-discharge to check on the status of his diarrhea. He was prescribed creon with meals at time of discharge. (4) Electrolyte abnormality: Hypokalemia and hypomagnesemia on admission - replaced, resolved. 2nd to etoh abuse. (5) Insomnia: Cont trazodone + ambien as previous. (6) Prediabetes: HgbA1C 6.4% f/u with PCP post-discharge (7) Liver lesion: 1.5 cm subcapsular lesion -- similar to CT of August 09, 2020. Likely a benign lesion but uron-dis-sapa recommend f/u with GI. 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 Patient reports he had seen pulmonary many years ago and told he had a benign process in the right lung. To ensure benign etiology I recommended follow-up with [facility] to assess this lesion. With respect to left-sided groundglass opacities seen on CT - he had NO symptoms of pulmonary infection while here and thus antibiotics were deferred. Total Time Total Time Spent Total Time Spent (In Minutes): 45 Discharge Plan Discharge Items Patient Disposition: Drug & Alcohol Rehab Reason For Visit: DETOX REQUEST Discharge Diagnosis: 1. mild alcohol withdrawal 2. severe, chronic diarrhea - improved; ?pancreatic insufficiency? - gastroenterology follow-up needed 3. alcohol abuse 4. abnormal CT scan of the lungs - pulmonary follow-up needed Activity: Resume your previous activity Non-emergency contact: Primary Care Provider and Specialist Call non-emergency contact if: you have any medication questions and your symptoms worsen Follow-up/Referrals: [facility] [Provider Group] - 07/03/22 (any provider, 2-4 weeks, ?pancreatic insufficiency ([facility])) [facility] [Provider Group] - 06/13/22 8:45 am (any provider, not urgent; f/u of abnormal CT scan of lungs (?bronchial atresia)) PCP,NO [Primary Care Provider] - Diet: Low Fiber Addtl Attending Provider Instructions: Mr Pardo, You came to [facility] with the request to stop alcohol use and ultimately go to alcohol rehab. During your stay you had minimal alcohol withdrawal symptoms. Your largest complaint was that of chronic diarrhea. A stool test for infections was negative. A CT scan of the abdomen/pelvis did not show the cause of your diarrhea. Roro CORTEZ saw you in consult. We trialed you on synthetic pancreatic enzymes with meals and your stools did improve with this. It is possible that chronic alcohol use has hurt your pancreas causing a condition called pancreatic insufficiency. You will need to see Roro CORTEZ to determine if that is the actual cause. In the meantime we will keep you on the pancreatic enzymes. You can also use the imodium as needed or as desired. Your CT scan of the lungs continues to show an abnormality of the right upper lung. This has been present for years. We are referring you to [facility] to see if you need any additional testing for this. Follow-up - see separate section; if you do not have a primary care physician we will need to set you up with one for the future Return to [facility] if - * you have fever over 100 degrees * you develop alcohol withdrawal that cannot be managed at [facility] * you have abdominal pains * any other concerns It was our pleasure to care for you! Dr Curry Pending Studies at Discharge: No Stand-Alone Forms: My [facility] Skilled Items Patient informed of condition?: Yes DNR: No Discharge Level of Care: Other Communicable Disease: No Discharge Prognosis: Stable Lines: None Urinary Catheter: No Medications and DC Order Prescriptions: New Ovidio 36,000-114,000- 180,000 unit Capsule,Delayed Release(Dr/Ec) 2 cap PO DIRECTED Qty: 120 0RF Rx Instructions: 2 caps with breakfast, 2 with lunch, 2 with dinner, and 1 with snacks. thiamine HCl (vitamin B1) 100 mg tablet 200 mg PO BID 30 Days Qty: 120 0RF folic acid 1 mg tablet 1 mg PO DAILY 30 Days Qty: 30 0RF Continued trazodone 50 mg Tablet 150 mg PO HS Rx Instructions: TAKE 3-4 TABS AT HS, PER PT TAKES 150 MG. gabapentin 800 mg Tablet 800 mg PO TID zolpidem 10 mg Tablet 10 mg PO HS Changed loperamide [Imodium A-D] 2 mg Tablet 2 mg PO Q6H PRN (Reason: Diarrhea) Qty: 1 0RF Rx Instructions: [id number] Discharge Orders: Discharge Order (Routine); Ordered 05/22/22 Ordered By: Андрей Florez/Other Patient Handouts: Prediabetes, 5 Steps for Eating Healthier Admission Data Admit Date/Time: 05/19/22 03:48 Attending Provider: Андрей Curry Admit Provider: Kayleigh Patricia Primary Care Provider: PCP,NO Other Providers: Kayleigh Patricia ; Rita Santiago Other Interventions: Discharge Summary Assessment (RN) Last Done: 05/22/22 12:35 Coding Level of Care Code D/C DAY MANAGEMENT >30 MINS Diagnoses Alcohol withdrawal F10.239 Alcohol abuse F10.10 Diarrhea R19.7 Electrolyte abnormality E87.8 Insomnia G47.00 Prediabetes R73.03 Liver lesion K76.9 Pulmonary nodule R91.1
[2022-05-25 13:12] LABS: MDA negative; MDEA negative; MDMA (Ecstasy) Urine, Confirm negative
== END 2022-05-22 14:04 | disposition alcohol treatment (31) | DRG 897 ==
LOC: ED 01:18 → SUATTDRO 03:48 → 2S 03:48